=== PATIENT | female | born 1980 | race Hispanic/Latino ===

== ENCOUNTER 2022-04-30 02:44 | Emergency (ER) | payer OTHER, MEDICAID, SELFPAY ==
[2022-04-30] VITALS (12 sets, daily range): BP systolic 135–155; BP diastolic 67–92; PULSE 114–122; RESP 14–16; TEMP 36.9; O2SAT 95–100; BMI 27.4
--- NOTE | 2022-04-30 03:43 | DI.RAD.S_ITS ---
PROCEDURE: XR CHEST 1V INDICATIONS: short of breath, fever TECHNIQUE: One view of the chest was acquired. COMPARISON: [facility], CT, CT CHEST ABD PEL W CON, 04/30/2022, 5:01. [facility], CR, XR CHEST 1 VIEW, 07/31/2018, 19:52. FINDINGS: Surgical changes and devices: None. Lungs and pleura: Lungs are clear. No pleural effusions or pneumothorax. Mediastinum: Mediastinal contours appear normal. Heart size is normal. Bones and chest wall: No suspicious bony lesions. Overlying soft tissues appear unremarkable. IMPRESSION: No acute cardiopulmonary abnormality. This report is concordant with the overnight preliminary interpretation. Dictated by: Dain Ashby M.D. on 04/30/2022 at 7:59 Approved by: Dain Ashby M.D. on 04/30/2022 at 8:00
--- NOTE | 2022-04-30 03:44 | ED.AMS ---
HPI - Altered Mental Status General Chief Complaint: Abdominal Pain Stated Complaint: abd pain, sore throat, lethargic Time Seen by Provider: 04/30/22 03:02 History of Present Illness HPI narrative: 41-year-old female nonsmoker with history of diabetes presents with family and friends in the chief complaint of bordering on unresponsive, complaints of sore throat, abdominal pain and nausea for the past day or 2. She denies missing any doses of her insulin or any change in her regimen. She denies chest pain, shortness of breath or cough. She is been nauseated but denies any vomiting. She is had no change in her bowel habits such as constipation or diarrhea. She denies alcohol or street drugs. There is no report of trauma or injury Related Data Previous Rx's Medication Instructions Recorded hydrocodone 5 mg-acetaminophen 325 0 tab PO QHS PRN PRN #30 tabs 04/05/16 mg tablet insulin glargine 100 unit/mL 30 u SQ BID #1 vial 04/05/16 subcutaneous solution (Lantus U-100 Insulin) lovastatin 20 mg tablet 20 mg PO HS #30 tabs 04/05/16 [place] 0 dev BID ##1 09/08/16 Syringes 0 syr BID #100 ea 09/08/16 insulin aspart U-100 100 unit/mL 30 unit (0.3 mL) SQ BID #1 vial 09/08/16 subcutaneous solution (Novolog U-100 Insulin aspart) Glucose: Home Monitoring Kit kit ##1 03/29/17 [place] packet BID ##1 03/29/17 Syringes: 1cc Insulin Syringes syr ##100 03/29/17 with [place] insulin aspart U-100 100 unit/mL 30 u SQ BID ##1 03/29/17 subcutaneous solution (Novolog U-100 Insulin aspart) insulin glargine 100 unit/mL 30 unit (0.3 mL) SQ BID #1 vial 03/29/17 subcutaneous solution (Lantus U-100 Insulin) Allergies Allergy/AdvReac Type Severity Reaction Status Date / Time mushroom [MUSHROOM] Allergy Unknown Unverified 09/14/17 12:32 Review of Systems Review of Systems Narrative: GENERAL: See HPI HEENT: Denies sinus pain, ear pain, sore throat, difficulty swallowing, dizziness. RESPIRATORY: Denies dyspnea, cough, wheezing, hemoptysis, sputum. CARDIOVASCULAR: Denies chest pain, palpitations, orthopnea, edema, GASTROINTESTINAL: See HPI : See HPI MUSCULOSKELETAL: denies weakness, joint pain, or bony pain SKIN: Denies rash, skin lesions, or other NEUROLOGIC: Denies weakness, headache, numbness, change in speech, confusion, seizures, incoordination. PSYCHIATRIC: No concerning psychosocial issues. 12 point review of systems is negative except for those stated above Patient History Surgical History Status post delivery Status post delivery Family History Father Cancer Hypertension High cholesterol Diabetes mellitus Mother Diabetes mellitus Hypertension Hyperlipidemia Sister Age: 47 Diabetes mellitus High cholesterol Hypertension Exam Narrative Exam Narrative: GENERAL: [41] year old patient appears stated age. Well-developed patient, apparent distress, moaning, guarding her airway and controlling secretions, HEAD: Atraumatic. Normocephalic. EYES: Pupils equal round and reactive. Extraocular motions intact. No scleral icterus. No injection or drainage. ENT: Nose without bleeding, purulent drainage. Throat without erythema, tonsillar hypertrophy or exudate. Airway patent. NECK: Trachea midline. Non tender CARDIOVASCULAR: Regular rate and rhythm without murmurs, gallops, or rubs. RESPIRATORY: Clear to auscultation. Breath sounds equal bilaterally. No wheezes, rales, or rhonchi. GASTROINTESTINAL: Abdomen soft, non-tender, nondistended. EXTREMITIES: No edema or joint tenderness. BACK: Nontender without deformity or crepitance. No flank tenderness. NEURO: Cranial nerves 2-12 grossly intact. SKIN: No rash or erythema of visible areas Initial Vital Signs Initial Vital Signs: Vital Signs Temperature 98.5 F 04/30/22 03:42 Pulse Rate 120 H 04/30/22 03:42 Respiratory Rate 16 04/30/22 03:42 Blood Pressure 135/92 H 04/30/22 03:42 Pulse Oximetry 99 04/30/22 03:42 Oxygen Delivery Method 04/30/22 03:42 Course Orders Ordered: Discontinued Medications Lactated Ringer's (Lactated Ringers) 1,000 mls @ 1,000 mls/hr IV BOLUS ONE Stop: 04/30/22 04:42 Last Infusion: 04/30/22 06:31 Dose: 0 mls/hr Documented By: Admin: 04/30/22 03:54 Dose: 1,000 mls/hr Documented By: FRANCISCO Levofloxacin (Levaquin) 750 mg in 150 mls @ 100 mls/hr IV NOW ONE Stop: 04/30/22 06:21 Last Infusion: 04/30/22 07:37 Dose: 0 mls/hr Documented By: Admin: 04/30/22 06:02 Dose: 100 mls/hr Documented By: FRANCISCO Lactated Ringer's (Lactated Ringers) 1,000 mls @ 1,000 mls/hr IV BOLUS ONE Stop: 04/30/22 06:59 Last Infusion: 04/30/22 07:37 Dose: 0 mls/hr Documented By: Admin: 04/30/22 06:31 Dose: 1,000 mls/hr Documented By: FRANCISCO Ketorolac Tromethamine (Ketorolac 30 Mg/Ml Vial) 15 mg IV NOW ONE Stop: 04/30/22 06:01 Last Admin: 04/30/22 06:06 Dose: 15 mg Documented By: FRANCISCO Reevaluation(s) Reevaluation #1: Over the duration of the visit patient becomes gradually more alert and oriented, she is speaking clearly and walking a straight line. She admits to using methamphetamines before her arrival Vital Signs Vital signs: Vital Signs - 8 hr 04/30/22 03:42 04/30/22 06:34 Temperature 98.5 F Pulse Rate 120 H 118 H Respiratory Rate 16 16 Blood Pressure 135/92 H 142/89 H Pulse Oximetry 99 98 Oxygen Delivery Method Room Air MDM - Altered Mental Status Lab Data Result diagrams: 04/30/22 03:45 04/30/22 03:45 Labs: Lab Results 04/30/22 04/30/22 04/30/22 Range/Units 03:45 03:45 03:45 WBC 25.6 H (4.5-11.0) X10^3/uL RBC 4.92 (4.0-5.2) X10^6/uL Hgb 12.9 (12.0-16.0) g/dL Hct 39.2 (36-46) % MCV 79.8 L (80-100) fL MCH 26.1 (26-34) PG MCHC 32.8 (30-36) % RDW 13.7 (11.6-14.8) % Plt Count 372 (150-400) X10^3/uL Neut % (Auto) Not Reportable Lymph % (Auto) Not Reportable [place] % (Auto) Not Reportable Eos % (Auto) Not Reportable Baso % (Auto) Not Reportable Lymph # (Auto) Not Reportable [place] # (Auto) Not Reportable Baso # (Auto) Not Reportable Total Counted 100 Seg Neutrophils % 90.0 H (38-70) % Band Neutrophils % 2.0 L (3-7) % Lymphocytes % (Manual) 5.0 L (25-45) % Monocytes % (Manual) 3.0 (2-11) % Neutrophils # (Manual) 70464 H (5416-4184) /uL RBC Morphology Normal morphology Sodium 136 L (137-145) mmol/L Potassium 3.5 (3.4-5.1) mmol/L Chloride 100 (98-107) mmol/L Carbon Dioxide 24 (22-32) mmol/L BUN 6 L (7-17) mg/dL Creatinine 0.55 (0.52-1.04) mg/dL Estimated GFR > 60 (>60) mL/min BUN/Creatinine Ratio 10.9 (6-22) Glucose 416 H (70-100) mg/dL Lactate 1.3 (0.7-2.1) mmol/L Calcium 8.6 (8.4-10.2) mg/dL Magnesium 1.7 (1.6-2.3) mg/dL Total Bilirubin 0.4 (0.2-1.3) mg/dL AST 48 H (14-36) IU/L ALT 57 H (<35) IU/L Alkaline Phosphatase 238 H (38-126) U/L Total Creatine Kinase 91 (30-135) U/L CK-MB (CK-2) TNP CK-MB (CK-2) Rel Index TNP Troponin I < 0.012 (0.01-0.034) ng/mL NT-Pro-B Natriuret Pep 50 (<125) pg/mL Total Protein 8.1 (6.3-8.2) g/dL Albumin 3.9 (3.5-5.0) g/dL Globulin 4.2 H (1.7-4.1) g/dL Albumin/Globulin Ratio 0.9 L (1.0-2.8) Lipase 18 L (23-300) U/L Salicylates (<20) mg/dL Acetaminophen (10-30) ug/mL Ethyl Alcohol ( - 10) mg/dL SARS-CoV-2 (PCR) (Negative) Influenza A (RT-PCR) (NEGATIVE) Influenza B (RT-PCR) (NEGATIVE) RSV (PCR) (Negative) 04/30/22 04/30/22 Range/Units 03:45 03:57 WBC (4.5-11.0) X10^3/uL RBC (4.0-5.2) X10^6/uL Hgb (12.0-16.0) g/dL Hct (36-46) % MCV (80-100) fL MCH (26-34) PG MCHC (30-36) % RDW (11.6-14.8) % Plt Count (150-400) X10^3/uL Neut % (Auto) Lymph % (Auto) [place] % (Auto) Eos % (Auto) Baso % (Auto) Lymph # (Auto) [place] # (Auto) Baso # (Auto) Total Counted Seg Neutrophils % (38-70) % Band Neutrophils % (3-7) % Lymphocytes % (Manual) (25-45) % Monocytes % (Manual) (2-11) % Neutrophils # (Manual) (5253-9689) /uL RBC Morphology Sodium (137-145) mmol/L Potassium (3.4-5.1) mmol/L Chloride (98-107) mmol/L Carbon Dioxide (22-32) mmol/L BUN (7-17) mg/dL Creatinine (0.52-1.04) mg/dL Estimated GFR (>60) mL/min BUN/Creatinine Ratio (6-22) Glucose (70-100) mg/dL Lactate (0.7-2.1) mmol/L Calcium (8.4-10.2) mg/dL Magnesium (1.6-2.3) mg/dL Total Bilirubin (0.2-1.3) mg/dL AST (14-36) IU/L ALT (<35) IU/L Alkaline Phosphatase (38-126) U/L Total Creatine Kinase (30-135) U/L CK-MB (CK-2) CK-MB (CK-2) Rel Index Troponin I (0.01-0.034) ng/mL NT-Pro-B Natriuret Pep (<125) pg/mL Total Protein (6.3-8.2) g/dL Albumin (3.5-5.0) g/dL Globulin (1.7-4.1) g/dL Albumin/Globulin Ratio (1.0-2.8) Lipase (23-300) U/L Salicylates 2.2 (<20) mg/dL Acetaminophen < 10 (10-30) ug/mL Ethyl Alcohol < 10 ( - 10) mg/dL SARS-CoV-2 (PCR) Negative (Negative) Influenza A (RT-PCR) Flu a negative (NEGATIVE) Influenza B (RT-PCR) Flu b negative (NEGATIVE) RSV (PCR) Negative (Negative) Point of Care Testing Glucose POC [address] scan - chest: Radiologist's Impression: Close Chest/Abdomen/Pelvis CT (Signed) Call,[facility] - 04/30/22 Chest X-Ray (Signed) Call,[facility] 04/30/22 Launch?[place] [address] CT Scan Report Signed Patient: Nancy Rea MR#: [id number] : 1980 Acct:[id number] Age/Sex: 41 / F Date of Service: 04/30/22 Loc: ED Accession Number: [id number] ?? Procedure: CT chest abd pel w con Ordering Provider: Jose Calderon D.O. PROCEDURE:? CT CHEST ABD PEL W CON ? INDICATIONS:? chest/abdomen pain, septic, WBC 25 ? TECHNIQUE:? After the administration of intravenous contrast, axial sections acquired from the supraclavicular neck to the pubic symphysis.? Coronal and sagittal reformats were performed.? For radiation dose reduction, the following was used:? automated exposure control, adjustment of mA and/or kV according to patient size.? ? COMPARISON: ? [facility], CT, CT CHEST W CON, 01/09/2016, 10:28. ? FINDINGS:? Image quality:? Good.? Motion artifact.? ? CHEST: Lower Neck: No enlarged lymph nodes.? Thyroid: Within normal limits. Axillae: No enlarged lymph nodes. Chest Wall:? Within normal limits.? ? Lungs and Airways: No consolidation or suspicious nodules.? Minimal dependent ground-glass opacity most consistent with atelectasis.? Motion artifact. Pleura: No pneumothorax or pleural effusions.? ? Heart: Heart size is normal.? No pericardial effusion. Thoracic Vessels: The aorta and pulmonary arteries demonstrate normal size.? Mediastinum and Veronique: No enlarged lymph nodes.? Esophagus: No wall thickening. No hiatal hernia. ? ? ABDOMEN: Liver:? No focal lesion. Gallbladder:? Distended. Biliary ducts:? No dilatation seen.? ? Pancreas:? Within normal limits.? Somewhat atrophic.? ? Spleen:? No splenomegaly. Adrenal Glands:? No nodule.? ? Kidneys and Ureters:? No hydronephrosis.? Symmetric enhancement. ? Stomach and Bowel:? Stomach, small bowel loops, and colon are unremarkable.? The appendix is not dilated. Peritoneum:? No abnormal intraperitoneal fluid.? No free air.? ? Ventral Wall: ? No hernia.? Abdominal Nodes:? No retroperitoneal or mesenteric adenopathy by size criteria.? Vessels:? Aorta and inferior vena cava are normal in size.? Mild plaque.? ? PELVIS: Pelvic Organs:? Endometrium is prominent.? Small right ovarian cyst or follicle.? Bladder:? Distended.? No stones. Pelvic Nodes: No enlarged lymph nodes.? Miscellaneous: No inguinal hernias are seen. ? ? ? Bones:? No suspicious lesion. ? IMPRESSION:? 1.? Minimal atelectasis. ? 2.? Distended gallbladder. ? 3.? Distended urinary bladder. ? 4. No free fluid. ? ? This report is concordant with the overnight preliminary interpretation.? Dictated by: Dain Ashby M.D. on 04/30/2022 at 7:47 ? ? Approved by: Dain Ashby M.D. on 04/30/2022 at 7:59 ? MDM Narrative Medical decision making narrative: Patient initially presented altered with an unclear history and physical exam over the course of the visit she became awake, alert and ambulatory with a steady gait. Her diagnostics including imaging and labs are very reassuring with the exception of a elevated white blood cell count. This is in the absence of any fever or suspected infection. She did admit to using methamphetamine just before her arrival but has not shared this information with her family. She refused a urine sample. In the end she was awake, alert and oriented and walking a straight line and requesting discharge stating she felt much better. She understood that we would have preferred to obtain urine and continue to observe and that the consequences of leaving prior to this could be permanent disability and even . Despite this discussion and her repeatedly stating she understands and demands to leave she chooses to leave. Her questions have been answered to her apparent satisfaction. She understands that she may return at any point without fear red percussion. Discharge Plan Departure Patient Disposition: Home Clinical Impression: Acute alteration in mental status Activity Restrictions/Additional Instructions: *You have been diagnosed with [altered mental status with very reassuring evaluation and improvement of symptoms] *What to do: *Please continue to take your regular medications as directed. *Please follow up with your primary care provider in 2-3 days, call for an appointment. Let them know you were seen in the Emergency Department and that we ask that you be seen in follow up. We will electronically transmit a record of today's note if your PCP is in our system *If you do not have a primary care provider please contact the [facility] Resource line at [phone]. They will ask some questions about your medical history and help get you set up with a doctor in the community. *Return to Emergency Department if you should have any new, worsening or concerning symptoms, such as [fever greater than 101 F, shaking chills, worsening pain, persistent vomiting or other bothersome symptoms] Prescriptions: No Action insulin glargine [Lantus U-100 Insulin] 100 UNIT/1 ML solution 30 u SQ BID Qty: 1 5RF lovastatin 20 MG tablet 20 mg PO HS Qty: 30 5RF hydrocodone-acetaminophen 5 MG/325 MG tablet 0 tab PO QHS PRN PRNQty: 30 0RF [place] 0 dev BID Qty: 1 0RF Syringes 0 syr BID Qty: 100 0RF insulin aspart U-100 [Novolog U-100 Insulin aspart] 100 UNIT/1 ML solution 30 unit SQ BID Qty: 1 0RF insulin glargine [Lantus U-100 Insulin] 100 UNIT/1 ML solution 30 unit SQ BID Qty: 1 0RF insulin aspart U-100 [Novolog U-100 Insulin aspart] 100 UNIT/1 ML solution 30 u SQ BID Qty: 1 0RF Glucose: Home Monitoring Kit Qty: 1 0RF [place] BID Qty: 1 0RF Syringes: 1cc Insulin Syringes with [place] Qty: 100 0RF Visit Report Forms: Patient Portal/API
[2022-04-30 03:53] LABS: Hematocrit 39.2 % (36-46); Hemoglobin 12.9 g/dL (12.0-16.0); Mean Corpuscular HGB Conc 32.8 % (30-36); Mean Corpuscular Hemoglobin 26.1 PG (26-34); Mean Corpuscular Volume 79.8 fL (80-100); Platelet Count 372 X10^3/uL (150-400); Red Blood Cell Count 4.92 X10^6/uL (4.0-5.2); Red Cell Distribution Width 13.7 % (11.6-14.8); White Blood Cell Count 25.6 X10^3/uL (4.5-11.0)
[2022-04-30] MEDS: LACTATED RINGERS 1,000 ML 1000 ML IV ×2 (03:54→06:31)
[2022-04-30 03:58] LABS: Add Manual Diff / Slide Review YES
[2022-04-30 04:03] LABS: Alanine Aminotransferase 57 IU/L (<35); Albumin 3.9 g/dL (3.5-5.0); Albumin Globulin Ratio 0.9 (1.0-2.8); Alkaline Phosphatase 238 U/L (38-126); Aspartate Aminotransferase 48 IU/L (14-36); BUN Creatinine Ratio 10.9 (6-22); Bilirubin Total 0.4 mg/dL (0.2-1.3); Blood Urea Nitrogen 6 mg/dL (7-17); Calcium 8.6 mg/dL (8.4-10.2); Carbon Dioxide 24 mmol/L (22-32); Chloride 100 mmol/L (98-107); Creatine Kinase 91 U/L (30-135); Estimated Glomerular Filt Rate > 60 mL/min (>60); Globulin 4.2 g/dL (1.7-4.1); Glucose 416 mg/dL (70-100); HEMOLYSIS < 15 (0-50); Lipase 18 U/L (23-300); Magnesium 1.7 mg/dL (1.6-2.3); Potassium 3.5 mmol/L (3.4-5.1); Sodium 136 mmol/L (137-145); Total Protein 8.1 g/dL (6.3-8.2)
[2022-04-30 04:04] LABS: Acetaminophen < 10 ug/mL (10-30); Ethanol (ETOH) < 10 mg/dL; Salicylate 2.2 mg/dL (<20)
[2022-04-30 04:05] LABS: Lactate (Lactic Acid) 1.3 mmol/L (0.7-2.1)
[2022-04-30 04:09] LABS: Neutrophils Absolute Manual 23552 /uL (3000-5900); Total Cells Counted 100
[2022-04-30 04:10] LABS: RBC Morphology Normal Morphology
[2022-04-30 04:17] LABS: NT-proBNP (BNP-Adult 18+) 50 pg/mL (<125); Troponin I < 0.012 ng/mL (0.01-0.034)
[2022-04-30 04:38] LABS: Influenza A - CEPHEID Flu A NEGATIVE (NEGATIVE); Influenza B - CEPHEID Flu B NEGATIVE (NEGATIVE); Respiratory Syncytial Virus Negative (Negative)
[2022-04-30 04:43] LABS: COVID-19 CEPHEID 4-PLEX PCR Negative (Negative)
--- NOTE | 2022-04-30 04:51 | DI.CT.S_ITS ---
PROCEDURE: CT CHEST ABD PEL W CON INDICATIONS: chest/abdomen pain, septic, WBC 25 TECHNIQUE: After the administration of intravenous contrast, axial sections acquired from the supraclavicular neck to the pubic symphysis. Coronal and sagittal reformats were performed. For radiation dose reduction, the following was used: automated exposure control, adjustment of mA and/or kV according to patient size. COMPARISON: [facility], CT, CT CHEST W CON, 01/09/2016, 10:28. FINDINGS: Image quality: Good. Motion artifact. CHEST: Lower Neck: No enlarged lymph nodes. Thyroid: Within normal limits. Axillae: No enlarged lymph nodes. Chest Wall: Within normal limits. Lungs and Airways: No consolidation or suspicious nodules. Minimal dependent ground-glass opacity most consistent with atelectasis. Motion artifact. Pleura: No pneumothorax or pleural effusions. Heart: Heart size is normal. No pericardial effusion. Thoracic Vessels: The aorta and pulmonary arteries demonstrate normal size. Mediastinum and Veronique: No enlarged lymph nodes. Esophagus: No wall thickening. No hiatal hernia. ABDOMEN: Liver: No focal lesion. Gallbladder: Distended. Biliary ducts: No dilatation seen. Pancreas: Within normal limits. Somewhat atrophic. Spleen: No splenomegaly. Adrenal Glands: No nodule. Kidneys and Ureters: No hydronephrosis. Symmetric enhancement. Stomach and Bowel: Stomach, small bowel loops, and colon are unremarkable. The appendix is not dilated. Peritoneum: No abnormal intraperitoneal fluid. No free air. Ventral Wall: No hernia. Abdominal Nodes: No retroperitoneal or mesenteric adenopathy by size criteria. Vessels: Aorta and inferior vena cava are normal in size. Mild plaque. PELVIS: Pelvic Organs: Endometrium is prominent. Small right ovarian cyst or follicle. Bladder: Distended. No stones. Pelvic Nodes: No enlarged lymph nodes. Miscellaneous: No inguinal hernias are seen. Bones: No suspicious lesion. IMPRESSION: 1. Minimal atelectasis. 2. Distended gallbladder. 3. Distended urinary bladder. 4. No free fluid. This report is concordant with the overnight preliminary interpretation. Dictated by: Dain Ashby M.D. on 04/30/2022 at 7:47 Approved by: Dain Ashby M.D. on 04/30/2022 at 7:59
--- NOTE | 2022-04-30 05:16 | PC.NURSE ---
BACK TENDER note: As I was coming in from taking patient to CT, I noticed pt's family member had her cellphone out and pointed towards me, as I was putting patient's blood pressure cuff on. I asked what she was doing. I have to show my sister what is happening. Right? I tried to say that we were a no recording facility. But patient began to ask for something. I told Shauna ROMANO about the situation. Shauna talked to patient's family.
--- NOTE | 2022-04-30 05:24 | PC.NURSE ---
Pt has become more alert and moves entire body in bed while continually yelling out for water. When MD goes into room to assess pt, pt refuses to answer question and demands water.
--- NOTE | 2022-04-30 05:51 | PC.NURSE ---
Patient suddenly yelling give me water, crawling out of bed and not following directions. Speech slurred, patient unsteady gait. Repeated attempts to direct patient back into bed, however patient declined to follow directions, yelling profane language and declining to answer questions regarding her needs. Patient unable to verbalize her needs at this time, stating I need water. Patient unsteady gait towards door, combative and swinging arms. Dr. Calderon at the bedside. Daughter at the bedside attempts multiple times to motivate mother back to [facility] but patient persists through door. Patient does not allow IV removal. Police notified.
--- NOTE | 2022-04-30 05:58 | PC.NURSE ---
Patient ambulating with assistance with Dr. Calderon back into ED room and onto [address].
[2022-04-30] MEDS: levoFLOXacin 750 MG/150 ML PIGGYBACK 100 MG IV (06:02)
[2022-04-30] MEDS: KETOROLAC 30 MG/ML VIAL 15 MG IV (06:06)
== END 2022-04-30 08:14 | disposition home or self-care (01) ==
PROVIDERS: Emergency Provider Emergency Medicine; Family Provider Family Medicine
DX: R41.82 Altered mental status, unspecified (principal); R07.9 Chest pain, unspecified; J02.9 Acute pharyngitis, unspecified
CPT/HCPCS: 0241U; 36415; 71045; 71260; 74177; 80053; 80320; 80329; 82550; 82962; 83605; 83690; 83735; 83880; 84484; 85007; 85025; 87040; 96365; 96366; 96375; 99284; G0480; J1885; J1956; Q9967

== ENCOUNTER 2024-01-01 23:40 | Emergency (ER) | payer OTHER, MEDICAID, SELFPAY ==
[2024-01-01 23:50] VITALS: BP 121/78; PULSE 98; RESP 16; TEMP 36.3; O2SAT 99; BMI 28.3
[2024-01-02] VITALS (10 sets, daily range): BP systolic 120–153; BP diastolic 71–85; PULSE 85–113; RESP 19; TEMP 36.4; O2SAT 91–99
--- NOTE | 2024-01-02 00:05 | DI.CT.S_ITS ---
PROCEDURE: CT ABDOMEN PELVIS WO CON INDICATIONS: RLQ ABD/FLANK PAIN TECHNIQUE: Axial sections were acquired from the lung bases to the pubic symphysis. Coronal and sagittal reformats were performed. For radiation dose reduction, the following was used: automated exposure control, adjustment of mA and/or kV according to patient size. COMPARISON: None. FINDINGS: Image quality: Diagnostic. Lower Chest: No significant findings. URINARY: Right Kidney: No stones or hydronephrosis. Right Ureter: No hydroureter. Left Kidney: No stones or hydronephrosis. Left Ureter: No hydroureter. Bladder: Bladder is decompressed and contains air. No bladder calculi. ABDOMEN: Liver: No contour-deforming solid mass. Gallbladder: No radiopaque gallstones or wall thickening. Biliary ducts: No biliary dilation. Pancreas: No ductal dilation. Spleen: Size is within normal limits. Adrenal Glands: No adrenal nodules. Stomach and Bowel: Normal colonic caliber, without significant wall thickening. Normal appendix. Peritoneum: No abnormal intraperitoneal fluid. No free air. Ventral Wall: No hernia. Abdominal Nodes: No enlarged retroperitoneal or mesenteric lymph nodes. Vessels: Aorta and inferior vena cava are normal in size. PELVIS: Pelvic Organs: Retroverted uterus. Right ovary appears slightly larger than the left, which is nonspecific. Pelvic Nodes: Unremarkable. Miscellaneous: No inguinal hernias are seen. Bones: Unremarkable. IMPRESSION: 1. Bladder is decompressed and contains air. Correlate for recent instrumentation versus infection with a gas-forming organism. 2. No renal or ureteral calculus. Normal appendix. 3. Right ovary appears slightly larger than the left. If there is clinical suspicion for ovarian torsion, consider pelvic ultrasound for further evaluation. Approved by: Rick Gotti M.D. on 01/02/2024 at 0:38
--- NOTE | 2024-01-02 00:20 | ED_ITS ---
HPI - Abdominal Pain General Chief Complaint: Abdominal Pain Stated Complaint: ABD Pain rt lower Time Seen by Provider: 01/02/24 00:01 Source: patient Mode of arrival: Ambulatory History of Present Illness HPI narrative: 43-year-old female with history of diabetes presents for cramping right-sided abdominal pain, foul-smelling and frothy urine. Symptoms have been going on for the last 2-3 days, persistent since onset. This has never happened before Related Data Home Medications Medication Instructions Recorded Confirmed duloxetine 20 mg capsule,delayed 40 mg PO ONCE PM 01/04/24 01/04/24 release empagliflozin 25 mg tablet 25 mg PO QAM 01/04/24 01/04/24 (Jardiance) famotidine 20 mg tablet 20 mg PO BID PRN STOMACH ACID 01/04/24 01/04/24 gabapentin 300 mg capsule 1 mg PO TID 01/04/24 01/04/24 insulin aspart U-100 100 unit/mL See Rx Instructions .Route .COMPLEX 01/04/24 01/04/24 subcutaneous solution (Novolog U-100 Insulin aspart) metformin 500 mg tablet,extended 1,000 mg PO BID 01/04/24 01/04/24 release 24 hr rosuvastatin 20 mg tablet 20 mg PO QPM 01/04/24 01/04/24 losartan 25 mg tablet 25 mg PO DAILY 01/05/24 Previous Rx's Medication Instructions Recorded lovastatin 20 mg tablet 20 mg PO HS #30 tabs 04/05/16 insulin glargine 100 unit/mL 30 unit (0.3 mL) SQ BID #1 vial 03/29/17 subcutaneous solution (Lantus U-100 Insulin) cefpodoxime 200 mg tablet 200 mg PO Q12H #20 tabs 01/02/24 Allergies Allergy/AdvReac Type Severity Reaction Status Date / Time mushroom [MUSHROOM] Allergy Unknown Verified 01/02/24 00:44 anti coagulation Allergy Unknown Uncoded 01/04/24 14:04 Patient History Surgical History Status post delivery Status post delivery Family History Father Cancer Hypertension High cholesterol Diabetes mellitus Mother Diabetes mellitus Hypertension Hyperlipidemia Sister Age: 48 Diabetes mellitus High cholesterol Hypertension Social History household members: significant other Smoking Status: Current every day smoker alcohol intake: current Smoking Status: Current every day smoker tobacco type: cigarettes and vaping alcohol intake frequency: holidays/special occasions only Substance Use Type: marijuana Exam Initial Vital Signs Initial Vital Signs: Vital Signs Temperature 97.4 F L 01/01/24 23:50 Pulse Rate 98 H 01/01/24 23:50 Respiratory Rate 16 01/01/24 23:50 Blood Pressure 121/78 01/01/24 23:50 Pulse Oximetry 99 01/01/24 23:50 Oxygen Delivery Method Room Air 01/01/24 23:50 Const: Awake, alert, anxious, nontoxic appearing Cardiac: regular rate, regular rhythm RESP: unlabored, clear bilaterally, no wheezing GI: Soft, generalized tenderness to deep palpation, particularly in the lower quadrant, no rebound or guarding Skin: Warm, Dry, intact, no rashes Neuro: AO x3, CN II-XII grossly intact, moves all extremities Course Orders Ordered: Discontinued Medications Sodium Chloride (Normal Saline 0.9%) 1,000 mls @ 1,000 mls/hr IV BOLUS ONE Stop: 01/02/24 01:04 Last Infusion: 01/02/24 02:46 Dose: Infused Documented By: Admin: 01/02/24 00:45 Dose: 1,000 mls/hr Documented By: PALMIRA Ketorolac Tromethamine (Ketorolac 30 Mg/Ml Vial) 15 mg IV NOW ONE Stop: 01/02/24 00:06 Last Admin: 01/02/24 00:46 Dose: 15 mg Documented By: PALMIRA Vital Signs Vital signs: Vital Signs - 8 hr 01/01/24 23:50 01/02/24 00:49 01/02/24 00:50 Temperature 97.4 F L Pulse Rate 98 H 109 H Respiratory Rate 16 Blood Pressure 121/78 128/83 Pulse Oximetry 99 99 Oxygen Delivery Method Room Air 01/02/24 00:50 01/02/24 01:00 01/02/24 01:00 Temperature Pulse Rate 105 H 105 H Respiratory Rate Blood Pressure 153/85 H Pulse Oximetry 98 95 Oxygen Delivery Method 01/02/24 01:26 01/02/24 01:30 01/02/24 01:36 Temperature Pulse Rate 105 H 113 H Respiratory Rate Blood Pressure 132/71 Pulse Oximetry 97 98 Oxygen Delivery Method Room Air 01/02/24 02:00 01/02/24 02:00 01/02/24 02:30 Temperature Pulse Rate 109 H Respiratory Rate Blood Pressure 137/81 127/74 Pulse Oximetry 98 Oxygen Delivery Method 01/02/24 02:30 01/02/24 03:00 01/02/24 03:00 Temperature Pulse Rate 105 H 106 H Respiratory Rate Blood Pressure 132/79 Pulse Oximetry 91 94 Oxygen Delivery Method MDM - Abdominal Pain Differential Diagnosis Differential diagnosis: Likely abdominal pain, acute appendicitis and calculus of kidney Lab Data 01/02/24 00:35 01/02/24 00:35 Labs: Lab Results 01/02/24 01/02/24 Range/Units 00:01 00:35 WBC 7.8 (4.5-11.0) X10^3/uL RBC 3.29 L (4.0-5.2) X10^6/uL Hgb 9.1 L (12.0-16.0) g/dL Hct 26.8 L (36-46) % MCV 81.5 (80-100) fL MCH 27.6 (26-34) PG MCHC 33.8 (30-36) % RDW 14.2 (11.6-14.8) % Plt Count 404 H (150-400) X10^3/uL Neut % (Auto) 64.1 (50-75) % Lymph % (Auto) 25.6 (25-40) % Nicholas % (Auto) 7.3 (3-14) % Eos % (Auto) 2.2 (2-4) % Baso % (Auto) 0.8 (0-2) % Neut # (Auto) 5000 (3761-1242) /uL Lymph # (Auto) 2000 (0112-7076) /uL Nicholas # (Auto) 600 (0-900) /uL Eos # (Auto) 200 (0-450) /uL Baso # (Auto) 100 (0-100) /uL Sodium 138 (137-145) mmol/L Potassium 3.6 (3.4-5.1) mmol/L Chloride 107 (98-107) mmol/L Carbon Dioxide 24 (22-32) mmol/L BUN 18 H (7-17) mg/dL Creatinine 0.87 (0.52-1.04) mg/dL Estimated GFR > 60 (>60) mL/min BUN/Creatinine Ratio 20.7 (6-22) Glucose 237 H (70-100) mg/dL Calcium 8.0 L (8.4-10.2) mg/dL Total Bilirubin 0.2 (0.2-1.3) mg/dL AST 21 (14-36) IU/L ALT 18 (<35) IU/L Alkaline Phosphatase 78 (38-126) U/L Total Protein 6.8 (6.3-8.2) g/dL Albumin 3.5 (3.5-5.0) g/dL Globulin 3.3 (1.7-4.1) g/dL Albumin/Globulin Ratio 1.1 (1.0-2.8) Urine Color Yellow Urine Appearance Cloudy Urine pH 6.0 (4.5-8.0) Ur Specific [place] >=1.030 H (1.000-1.035) Urine Protein 3+ H (Negative) Urine Glucose (UA) 3+ H (Negative) g/dL Urine Ketones Negative (NEGATIVE) Urine Occult Blood 2+ H (Negative) Urine Nitrate Negative (Negative) Urine Bilirubin Negative (NEGATIVE) Urine Urobilinogen 0.2 (0.2) E.U./dL Ur Leukocyte Esterase Negative (NEGATIVE) Urine RBC None seen (0-5/HPF) Urine WBC 1-5/hpf (0-5/HPF) Ur Squamous Epith Cells 0-1 /hpf (0-5/HPF) Urine Bacteria Many (>30) H (None) Ur Culture Indicated? Specimen cultured Vol Urine Centrifuged 10ml (spun) Point of care testing: Point of Care Testing Test Results Negative Urine Dip Bedside Urine Glucose 1000 mg/dl Bedside Urine Bilirubin - Negative Bedside Urine Ketone - Negative Urine Specific [place] 1.030 Bedside Urine Occult Blood +++ Bedside Urine pH 6.0 Bedside Urine Protein +++ 300 Bedside Urine Urobilinogen - Negative Bedside Urine Nitrite - Negative Bedside Urine Leukocytes - Negative Esterase Imaging Data CT scan - abdomen/pelvis: Radiologist's Impression: PROCEDURE: CT ABDOMEN PELVIS WO CON INDICATIONS: RLQ ABD/FLANK PAIN TECHNIQUE: Axial sections were acquired from the lung bases to the pubic symphysis. Coronal and sagittal reformats were performed. For radiation dose reduction, the following was used: automated exposure control, adjustment of mA and/or kV according to patient size. COMPARISON: None. FINDINGS: Image quality: Diagnostic. Lower Chest: No significant findings. URINARY: Right Kidney: No stones or hydronephrosis. Right Ureter: No hydroureter. Left Kidney: No stones or hydronephrosis. Left Ureter: No hydroureter. Bladder: Bladder is decompressed and contains air. No bladder calculi. ABDOMEN: Liver: No contour-deforming solid mass. Gallbladder: No radiopaque gallstones or wall thickening. Biliary ducts: No biliary dilation. Pancreas: No ductal dilation. Spleen: Size is within normal limits. Adrenal Glands: No adrenal nodules. Stomach and Bowel: Normal colonic caliber, without significant wall thickening. Normal appendix. Peritoneum: No abnormal intraperitoneal fluid. No free air. Ventral Wall: No hernia. Abdominal Nodes: No enlarged retroperitoneal or mesenteric lymph nodes. Vessels: Aorta and inferior vena cava are normal in size. PELVIS: Pelvic Organs: Retroverted uterus. Right ovary appears slightly larger than the left, which is nonspecific. Pelvic Nodes: Unremarkable. Miscellaneous: No inguinal hernias are seen. Bones: Unremarkable. IMPRESSION: 1. Bladder is decompressed and contains air. Correlate for recent instrumentation versus infection with a gas-forming organism. 2. No renal or ureteral calculus. Normal appendix. 3. Right ovary appears slightly larger than the left. If there is clinical suspicion for ovarian torsion, consider pelvic ultrasound for further evaluation. Approved by: Rick Gotti M.D. on 01/02/2024 at 0:38 MDM Narrative Medical decision making narrative: Nontoxic appearing patient with several days of discomfort and frothing urine. Exam overall reassuring, no peritoneal signs. Laboratory work and CT imaging to be obtained to evaluate for possible stone. Laboratory work shows WBC count 7.8, hemoglobin 9.1, platelets 404. Uncertain significance of hemoglobin as last values on record are from 2021. Sodium 138, potassium 3.6, creatinine 0.87, glucose 237. CT of the abdomen and pelvis shows air in the bladder, no stone. Noted that right ovary appears slightly larger than the left, however based on patient's description of symptoms as well as benign abdominal exam I have no suspicion for torsion at this time. There was no instrumentation into the bladder and so gas would be unusual. Point of care urinalysis did not reveal any nitrites or leukocyte esterase, but microscopic urinalysis showed many bacteria. Patient counseled on all lab and imaging findings. Antibiotics sent to pharmacy of choice. Patient counseled to maintain closer control of her glucose to help prevent further urinary tract infections. Discharge Plan Departure Patient Disposition: Home Clinical Impression: UTI (urinary tract infection) Instructions: DI for Urinary Tract Infection (UTI) Activity Restrictions/Additional Instructions: Your laboratory work showed a slightly high glucose, but otherwise normal. Your urinalysis has a lot of bacteria and glucose in it. Your CT showed a small amount of air in your bladder, likely caused by the bacteria present. It is extremely important that you keep your glucose under close control as this while help prevent further infections. Follow up with your primary care doctor. [facility] [place]. Prescriptions: New cefpodoxime 200 mg tablet 200 mg PO Q12H Qty: 20 0RF Patient Comments: NOT STARTED PER PATIENT Rx Instructions: must administer with a meal/food No Action lovastatin 20 MG tablet 20 mg PO HS Qty: 30 5RF insulin glargine [Lantus U-100 Insulin] 100 UNIT/1 ML solution 30 unit SQ BID Qty: 1 0RF famotidine 20 mg tablet 20 mg PO BID PRN (Reason: STOMACH ACID) gabapentin 300 mg capsule 1 mg PO TID metformin 500 mg tablet extended release 24 hr 1,000 mg PO BID rosuvastatin 20 mg tablet 20 mg PO QPM duloxetine 20 mg capsule,delayed release(DR/EC) 40 mg PO ONCE PM Jardiance 25 mg tablet 25 mg PO QAM insulin aspart U-100 [Novolog U-100 Insulin aspart] 100 UNIT/1 ML solution See Rx Instructions .ROUTE .COMPLEX Rx Instructions: SS [employer]OVERAGE losartan 25 mg tablet 25 mg PO DAILY Stand Alone Forms: Patient Portal/API
[2024-01-02] MEDS: SODIUM CHLORIDE 0.9% 1,000 ML 1000 ML IV (00:45)
[2024-01-02] MEDS: KETOROLAC 30 MG/ML VIAL 15 MG IV (00:46)
[2024-01-02 00:55] LABS: Add Manual Diff / Slide Review NO; Basophils Absolute Auto 100 /uL (0-100); Basophils Percent Auto 0.8 % (0-2); Eosinophils Absolute Auto 200 /uL (0-450); Eosinophils Percent Auto 2.2 % (2-4); Hematocrit 26.8 % (36-46); Hemoglobin 9.1 g/dL (12.0-16.0); Lymphocytes Absolute Auto 2000 /uL (1100-4500); Lymphocytes Percent Auto 25.6 % (25-40); Mean Corpuscular HGB Conc 33.8 % (30-36); Mean Corpuscular Hemoglobin 27.6 PG (26-34); Mean Corpuscular Volume 81.5 fL (80-100); Monocytes Absolute Auto 600 /uL (0-900); Monocytes Percent Auto 7.3 % (3-14); Neutrophils Absolute Auto 5000 /uL (1500-7000); Neutrophils Percent Auto 64.1 % (50-75); Platelet Count 404 X10^3/uL (150-400); Red Blood Cell Count 3.29 X10^6/uL (4.0-5.2); Red Cell Distribution Width 14.2 % (11.6-14.8); White Blood Cell Count 7.8 X10^3/uL (4.5-11.0)
[2024-01-02 01:13] LABS: Alanine Aminotransferase 18 IU/L (<35); Albumin 3.5 g/dL (3.5-5.0); Albumin Globulin Ratio 1.1 (1.0-2.8); Alkaline Phosphatase 78 U/L (38-126); Aspartate Aminotransferase 21 IU/L (14-36); BUN Creatinine Ratio 20.7 (6-22); Bilirubin Total 0.2 mg/dL (0.2-1.3); Blood Urea Nitrogen 18 mg/dL (7-17); Carbon Dioxide 24 mmol/L (22-32); Chloride 107 mmol/L (98-107); Estimated Glomerular Filt Rate > 60 mL/min (>60); Globulin 3.3 g/dL (1.7-4.1); Glucose 237 mg/dL (70-100); HEMOLYSIS < 15 (0-50); Potassium 3.6 mmol/L (3.4-5.1); Sodium 138 mmol/L (137-145); Total Protein 6.8 g/dL (6.3-8.2)
[2024-01-02 03:33] LABS: Appearance Urine UA CLOUDY; Bilirubin Urine UA NEGATIVE (NEGATIVE); Color Urine UA YELLOW; Glucose Urine UA 3+ g/dL (Negative); Ketones Urine UA NEGATIVE (NEGATIVE); Leukocyte Esterase Urine UA NEGATIVE (NEGATIVE); Nitrite Urine UA NEGATIVE (Negative); Occult Blood Urine UA 2+ (Negative); Protein Urine UA 3+ (Negative); Specific Gravity Urine UA >=1.030 (1.000-1.035); Urobilinogen Urine UA 0.2 E.U./dL (0.2)
[2024-01-02 03:40] LABS: Bacteria Urine Many (>30); Culture Indicated Urine Specimen Cultured; RBC Urine None Seen (0-5/HPF); Squamous Epithelial Cell Urine 0-1 /HPF (0-5/HPF); Urine Volume 10mL (spun); WBC Urine 1-5/HPF (0-5/HPF)
== END 2024-01-02 04:20 | disposition home or self-care (01) ==
PROVIDERS: Emergency Provider Emergency Medicine; Family Provider Family Medicine
DX: N39.0 Urinary tract infection, site not specified (principal); R10.31 Right lower quadrant pain
CPT/HCPCS: 36415; 74176; 80053; 81001; 81003; 81025; 85025; 87077; 87086; 87186; 87210; 96361; 96374; 99284; J1885

== ENCOUNTER 2024-01-04 10:06 | Inpatient (IN) | payer OTHER, MEDICAID, SELFPAY ==
[2024-01-04] VITALS (18 sets, daily range): BP systolic 115–136; BP diastolic 72–88; PULSE 66–119; RESP 15–24; TEMP 36.5–37.1; O2SAT 92–96; BMI 28.3; BMI 29.6
--- NOTE | 2024-01-04 10:20 | DI.RAD.S_ITS ---
PROCEDURE: XR CHEST 1V INDICATIONS: chest pain TECHNIQUE: One view of the chest was acquired. COMPARISON: [facility], CR, XR CHEST 1V, 04/30/2022, 3:48. FINDINGS: Surgical changes and devices: None. Lungs and pleura: Severe bilateral basilar predominant reticulonodular and ground-glass density. No pleural effusions or pneumothorax. Mediastinum: Mediastinal contours appear normal. Heart size is normal. Bones and chest wall: No suspicious bony lesions. Overlying soft tissues appear unremarkable. IMPRESSION: Bilateral edema versus pneumonia. Dictated by: Cb Valentine M.D. on 01/04/2024 at 11:09 Approved by: Cb Valentine M.D. on 01/04/2024 at 11:10
--- NOTE | 2024-01-04 10:27 | EKG_ITS ---
[facility] [address] [place] [address] Test Date: 2024-01-04 Pat Name: Nancy Rea Department: [facility] Room: Gender: Female [employer]drolog[employer] Modeler: KHADIJAH : 1980 Requested By: Order Number: [id number] Reading MD: Brayden Choi Measurements Intervals [place] Rate: 110 P: 49 IL: 144 QRS: 49 QRSD: 88 T: 112 QT: 332 QTc: 449 Interpretive Statements Sinus tachycardia Nonspecific ST and T wave abnormality Electronically Signed On 01-04-2024 14:31:35 PDT by Brayden Choi
[2024-01-04 10:57] LABS: Prothrombin Time 11.2 SECONDS (9.4-12.5)
[2024-01-04 10:58] LABS: Add Manual Diff / Slide Review NO; Basophils Absolute Auto 100 /uL (0-100); Basophils Percent Auto 0.6 % (0-2); Eosinophils Absolute Auto 200 /uL (0-450); Eosinophils Percent Auto 1.7 % (2-4); Hematocrit 28.2 % (36-46); Hemoglobin 9.4 g/dL (12.0-16.0); Lymphocytes Absolute Auto 1800 /uL (1100-4500); Lymphocytes Percent Auto 16.8 % (25-40); Mean Corpuscular HGB Conc 33.4 % (30-36); Mean Corpuscular Hemoglobin 27.3 PG (26-34); Mean Corpuscular Volume 81.8 fL (80-100); Monocytes Absolute Auto 500 /uL (0-900); Monocytes Percent Auto 4.4 % (3-14); Neutrophils Absolute Auto 8200 /uL (1500-7000); Neutrophils Percent Auto 76.5 % (50-75); Platelet Count 380 X10^3/uL (150-400); Red Blood Cell Count 3.44 X10^6/uL (4.0-5.2); Red Cell Distribution Width 14.4 % (11.6-14.8); White Blood Cell Count 10.7 X10^3/uL (4.5-11.0)
[2024-01-04 11:00] LABS: PTT Partial Thromboplastin Tim 38 SECONDS (25.1-36.5)
[2024-01-04 11:02] LABS: Alanine Aminotransferase 18 IU/L (<35); Albumin 3.5 g/dL (3.5-5.0); Alkaline Phosphatase 86 U/L (38-126); Aspartate Aminotransferase 22 IU/L (14-36); BUN Creatinine Ratio 22.2 (6-22); Bilirubin Total 0.5 mg/dL (0.2-1.3); Blood Urea Nitrogen 16 mg/dL (7-17); Calcium 7.9 mg/dL (8.4-10.2); Carbon Dioxide 19 mmol/L (22-32); Chloride 110 mmol/L (98-107); Creatine Kinase 206 U/L (30-135); Estimated Glomerular Filt Rate > 60 mL/min (>60); Globulin 3.5 g/dL (1.7-4.1); Glucose 256 mg/dL (70-100); HEMOLYSIS < 15 (0-50); Lipase 23 U/L (23-300); Magnesium 1.7 mg/dL (1.6-2.3); Potassium 3.5 mmol/L (3.4-5.1); Sodium 136 mmol/L (137-145)
[2024-01-04 11:13] LABS: NT-proBNP (BNP-Adult 18+) 4070 pg/mL (<125); Troponin I 0.094 ng/mL (0.01-0.034)
--- NOTE | 2024-01-04 11:25 | DI.CT.S_ITS ---
PROCEDURE: CT ANGIO CHEST PE PROTOCOL INDICATIONS: Dyspnea TECHNIQUE: After the administration of intravenous contrast, 2 mm thick sections acquired from the pulmonary apices to the posterior costophrenic angles. 3-dimensional maximum intensity projection (MIP) coronal and sagittal reformats were then acquired through the thorax. For radiation dose reduction, the following was used: automated exposure control, adjustment of mA and/or kV according to patient size. COMPARISON: [facility], CT, CT CHEST ABD PEL W CON, 04/30/2022, 5:01. [facility], CR, XR CHEST 1V, 01/04/2024, 10:25. FINDINGS: Image quality: Diagnostic. Pulmonary arteries: Pulmonary arteries are normal in size, and demonstrate no intraluminal filling defects to suggest central pulmonary embolism. Lower Neck: No enlarged lymph nodes. Thyroid: No thyroid nodules which require sonographic follow up, per consensus guidelines. Axillae: No enlarged lymph nodes. Chest Wall: Unremarkable. Bones: Unremarkable. Lungs and Pleura: No pneumothorax . Moderate bilateral pleural effusions are present. There is severe bilateral basilar predominant interstitial and ground-glass pulmonary opacity. Heart: Heart size is normal. Calcification of the coronary vasculature is present. No pericardial effusion. Thoracic Vessels: No aortic aneurysm. Mediastinum and Veronique: Multiple enlarged mediastinal lymph nodes are present, largest of which are in the prevascular location measuring 11 mm short axis, the right paratracheal location measuring 16 mm short axis and the subcarinal location measuring 22 mm short axis. Mildly prominent bilateral hilar lymph nodes are present. Esophagus: No wall thickening. No hiatal hernia. Upper Abdomen: No change in peripherally calcified low-density focus at the hepatic hilum measuring roughly 15 mm diameter. IMPRESSION: 1. No change in bilateral pulmonary opacities compared to same-day plain film, most suggestive of pneumonia. Presumably reactive mediastinal hilar adenopathy. Follow-up chest CT with contrast in 3 months recommended to ensure resolution and exclude underlying neoplasm. 2. No evidence of coexisting pulmonary embolus. 3. Bilateral pleural effusions. 4. Coronary artery disease. Dictated by: Cb Valentine M.D. on 01/04/2024 at 12:09 Approved by: Cb Valentine M.D. on 01/04/2024 at 12:18
--- NOTE | 2024-01-04 11:26 | ED.CHESTPAIN ---
HPI - Chest Pain General Chief Complaint: Chest Pain Stated Complaint: Hard Time breathing Time Seen by Provider: 01/04/24 11:20 Source: patient Mode of arrival: Ambulatory Limitations: no limitations History of Present Illness HPI narrative: Patient here for complaints of reproducible substernal chest pain/burning sensation with deep breath and walking. Feels short of breath. No cardiac or lung history but does have history of diabetes. Patient seen here 2 days ago treatment for UTI. Today symptoms started in the past 24 hours. No prior history of heart attack or strokes. EKG sinus tachycardia with elevated troponin. Repeat troponin will be done in [address] chest ordered. Related Data Home Medications Medication Instructions Recorded Confirmed duloxetine 20 mg capsule,delayed 40 mg PO ONCE PM 01/04/24 01/04/24 release empagliflozin 25 mg tablet 25 mg PO QAM 01/04/24 01/04/24 (Jardiance) famotidine 20 mg tablet 20 mg PO BID PRN STOMACH ACID 01/04/24 01/04/24 gabapentin 300 mg capsule 1 mg PO TID 01/04/24 01/04/24 insulin aspart U-100 100 unit/mL See Rx Instructions .Route .COMPLEX 01/04/24 01/04/24 subcutaneous solution (Novolog U-100 Insulin aspart) metformin 500 mg tablet,extended 1,000 mg PO BID 01/04/24 01/04/24 release 24 hr rosuvastatin 20 mg tablet 20 mg PO QPM 01/04/24 01/04/24 losartan 25 mg tablet 25 mg PO DAILY 01/05/24 Previous Rx's Medication Instructions Recorded lovastatin 20 mg tablet 20 mg PO HS #30 tabs 04/05/16 insulin glargine 100 unit/mL 30 unit (0.3 mL) SQ BID #1 vial 03/29/17 subcutaneous solution (Lantus U-100 Insulin) cefpodoxime 200 mg tablet 200 mg PO Q12H #20 tabs 01/02/24 Allergies Allergy/AdvReac Type Severity Reaction Status Date / Time mushroom [MUSHROOM] Allergy Unknown Verified 01/02/24 00:44 anti coagulation Allergy Unknown Uncoded 01/04/24 14:04 Review of Systems Review of Systems Narrative: GENERAL: negative chills, fatigue, malaise, fever, sweats. HEENT: negative sinus pain, ear pain, sore throat RESPIRATORY: Positive dyspnea, cough CARDIOVASCULAR: Positive chest pain, negative palpitations GASTROINTESTINAL: negative nausea, vomiting, abdominal pain : negative dysuria, frequency, hematuria MUSCULOSKELETAL: negative muscle or bony pain SKIN: negative rash, skin lesions NEUROLOGIC: negative weakness, numbness Patient History Surgical History Status post delivery Status post delivery Family History Father Cancer Hypertension High cholesterol Diabetes mellitus Mother Diabetes mellitus Hypertension Hyperlipidemia Sister Age: 48 Diabetes mellitus High cholesterol Hypertension Social History household members: significant other Smoking Status: Current every day smoker alcohol intake: current Smoking Status: Current every day smoker tobacco type: cigarettes and vaping alcohol intake frequency: holidays/special occasions only Substance Use Type: marijuana Exam Narrative Exam Narrative: GENERAL: in no distress, not toxic not dyspneic HEAD: Normocephalic. EYES: Pupils equal round ENT: Mucous membranes moist. NECK: Trachea midline. CARDIOVASCULAR: Regular rate and rhythm RESPIRATORY: Patient is speaking full sentences. No respiratory distress, there is diminished bilateral basilar lung sounds and mild rhonchi. As discomfort in the chest with deep breath and movement. GASTROINTESTINAL: Abdomen soft, non-tender EXTREMITIES: No gross deformities. BACK: No flank tenderness. NEURO: AOx4. SKIN: Warm and dry PSYCH: Not anxious, is cooperative Initial Vital Signs Initial Vital Signs: Vital Signs Temperature 98.7 F 01/04/24 10:18 Pulse Rate 114 H 01/04/24 10:18 Respiratory Rate 18 01/04/24 10:18 Blood Pressure 124/72 01/04/24 10:18 Pulse Oximetry 95 01/04/24 10:18 Oxygen Delivery Method Room Air 01/04/24 10:18 Course Orders Ordered: Discontinued Medications Acetaminophen (Acetaminophen 325 Mg Tablet) 650 mg PO Q6H PRN PRN Reason: Fever/Mild Pain (1-3) Last Admin: 01/05/24 05:48 Dose: 650 mg Documented By: CARMEN Aspirin (Aspirin 81 Mg Chew Tab) 324 mg PO NOW ONE Stop: 01/04/24 10:21 Last Admin: 01/04/24 11:32 Dose: 324 mg Documented By: ADRIA Heparin Sodium (Porcine) (Heparin 5,000 Unit/Ml Vial) 5,000 unit SUBCUT BID [facility] Last Admin: 01/05/24 08:14 Dose: Not Given Documented By: Admin: 01/04/24 20:57 Dose: 5,000 unit Documented By: CARMEN Hydromorphone HCl (Hydromorphone 1 Mg Inj) 1 mg IV NOW ONE Stop: 01/04/24 21:58 Last Admin: 01/04/24 22:05 Dose: 1 mg Documented By: CARMEN Sodium Chloride (Normal Saline 0.9%) 500 mls @ 1,000 mls/hr IV BOLUS ONE Stop: 01/04/24 11:54 Last Infusion: 01/04/24 12:19 Dose: Infused Documented By: Admin: 01/04/24 11:32 Dose: 1,000 mls/hr Documented By: ADRIA Ceftriaxone Sodium 2,000 mg/ (Sodium Chloride) 100 mls @ 200 mls/hr IV NOW ONE Stop: 01/04/24 14:09 Last Infusion: 01/04/24 14:54 Dose: 0 mls/hr Documented By: Admin: 01/04/24 14:34 Dose: 200 mls/hr Documented By: ADRIA Azithromycin 500 mg/ Dextrose 250 mls @ 250 mls/hr IV NOW ONE Stop: 01/04/24 14:09 Last Admin: 01/04/24 15:38 Dose: 250 mls/hr Documented By: JOYCELYN Sodium Chloride (Normal Saline 0.45%) 1,000 mls @ 100 mls/hr IV CONT [facility] Last Admin: 01/05/24 01:04 Dose: 100 mls/hr Documented By: Infusion: 01/05/24 01:04 Dose: Infused Documented By: Admin: 01/04/24 15:39 Dose: 100 mls/hr Documented By: JOYCELYN Ceftriaxone Sodium 1,000 mg/ (Sodium Chloride) 100 mls @ 200 mls/hr IV Q24H [facility] Stop: 01/08/24 13:59 Azithromycin 500 mg/ Dextrose 250 mls @ 250 mls/hr IV Q24H [facility] Stop: 01/06/24 15:59 Dextrose (D10w) 100 mls @ 999 mls/hr IV PRN PRN PRN Reason: Hypoglycemia Insulin Glargine (Insulin Glargine 100 Unit/Ml 3ml Pen) 30 unit SUBCUT BID [facility] Last Admin: 01/05/24 08:08 Dose: 30 unit Documented By: JOYCELYN Co-signed By: MAIDA Admin: 01/04/24 20:58 Dose: 30 unit Documented By: CARMEN Co-signed By: JUD Insulin Human Lispro (Insulin Lispro 100 Unit/Ml 3ml Vial) 0 unit SUBCUT ACHS [facility]; Protocol Last Admin: 01/05/24 08:07 Dose: 5 unit Documented By: JOYCELYN Co-signed By: MAIDA Admin: 01/04/24 20:59 Dose: Not Given Documented By: Admin: 01/04/24 15:52 Dose: 5 unit Documented By: JOYCELYN Co-signed By: JUD Naloxone HCl (Naloxone 0.4 Mg/Ml Vial) 0.2 mg IV Q2MIN PRN PRN Reason: Opiate Reversal Ondansetron HCl (Ondansetron 4 Mg/2 Ml Inj) 4 mg IV Q8HR PRN PRN Reason: Nausea And Vomiting Oxycodone HCl (Oxycodone Ir 5 Mg Tablet) 5 mg PO Q6HR TRUMAN Oxycodone HCl (Oxycodone Ir 5 Mg Tablet) 5 mg PO Q6HR PRN PRN Reason: Pain, Moderate (4-6) Last Admin: 01/05/24 05:49 Dose: 5 mg Documented By: Admin: 01/04/24 21:48 Dose: 5 mg Documented By: CARMEN Simethicone (Simethicone 80 Mg Tablet) 160 mg PO QID PRN PRN Reason: Flatulence Last Admin: 01/05/24 08:08 Dose: 160 mg Documented By: Admin: 01/04/24 21:17 Dose: 160 mg Documented By: CARMEN Vital Signs Vital signs: Vital Signs - 8 hr 01/04/24 10:18 01/04/24 10:19 01/04/24 10:20 Temperature 98.7 F Pulse Rate 114 H 117 H Respiratory Rate 18 Blood Pressure 124/72 119/72 Pulse Oximetry 95 95 Oxygen Delivery Method Room Air Room Air 01/04/24 10:20 01/04/24 10:30 01/04/24 10:30 Temperature Pulse Rate 119 H 107 H Respiratory Rate 20 Blood Pressure 121/76 Pulse Oximetry Oxygen Delivery Method 01/04/24 11:00 01/04/24 11:00 01/04/24 11:30 Temperature Pulse Rate 108 H Respiratory Rate 22 Blood Pressure 126/83 125/82 Pulse Oximetry 94 Oxygen Delivery Method Room Air 01/04/24 11:30 01/04/24 11:44 01/04/24 11:44 Temperature Pulse Rate 108 H 104 H Respiratory Rate 24 Blood Pressure 125/79 Pulse Oximetry 94 95 Oxygen Delivery Method 01/04/24 12:00 01/04/24 12:01 01/04/24 12:01 Temperature Pulse Rate 103 H 103 H Respiratory Rate 21 18 Blood Pressure 132/79 Pulse Oximetry 92 92 Oxygen Delivery Method 01/04/24 12:30 01/04/24 12:30 01/04/24 13:00 Temperature Pulse Rate 104 H Respiratory Rate 19 Blood Pressure 135/85 134/82 Pulse Oximetry 95 Oxygen Delivery Method Room Air 01/04/24 13:00 01/04/24 13:30 01/04/24 13:30 Temperature Pulse Rate 105 H 106 H Respiratory Rate 18 18 Blood Pressure 115/77 Pulse Oximetry 94 94 Oxygen Delivery Method Room Air 01/04/24 13:40 01/04/24 13:40 01/04/24 13:44 Temperature Pulse Rate 112 H 112 H Respiratory Rate Blood Pressure 123/79 Pulse Oximetry 95 94 Oxygen Delivery Method MDM - Chest Pain Lab Data 01/05/24 04:44 01/05/24 04:44 Labs: Lab Results 01/04/24 01/04/24 01/04/24 Range/Units 10:37 11:34 12:32 WBC 10.7 (4.5-11.0) X10^3/uL RBC 3.44 L (4.0-5.2) X10^6/uL Hgb 9.4 L (12.0-16.0) g/dL Hct 28.2 L (36-46) % MCV 81.8 (80-100) fL MCH 27.3 (26-34) PG MCHC 33.4 (30-36) % RDW 14.4 (11.6-14.8) % Plt Count 380 (150-400) X10^3/uL Neut % (Auto) 76.5 H (50-75) % Lymph % (Auto) 16.8 L (25-40) % [place] % (Auto) 4.4 (3-14) % Eos % (Auto) 1.7 L (2-4) % Baso % (Auto) 0.6 (0-2) % Neut # (Auto) 8200 H (5001-1836) /uL Lymph # (Auto) 1800 (4180-9730) /uL [place] # (Auto) 500 (0-900) /uL Eos # (Auto) 200 (0-450) /uL Baso # (Auto) 100 (0-100) /uL PT 11.2 (9.4-12.5) SECONDS INR 1.0 (0.9-1.3) APTT 38 H (25.1-36.5) SECONDS Sodium 136 L (137-145) mmol/L Potassium 3.5 (3.4-5.1) mmol/L Chloride 110 H (98-107) mmol/L Carbon Dioxide 19 L (22-32) mmol/L BUN 16 (7-17) mg/dL Creatinine 0.72 (0.52-1.04) mg/dL Estimated GFR > 60 (>60) mL/min BUN/Creatinine Ratio 22.2 H (6-22) Glucose 256 H (70-100) mg/dL Lactate 1.5 (0.7-2.1) mmol/L Calcium 7.9 L (8.4-10.2) mg/dL Magnesium 1.7 (1.6-2.3) mg/dL Total Bilirubin 0.5 (0.2-1.3) mg/dL AST 22 (14-36) IU/L ALT 18 (<35) IU/L Alkaline Phosphatase 86 (38-126) U/L Total Creatine Kinase 206 H (30-135) U/L Troponin I 0.094 H 0.099 H (0.01-0.034) ng/mL NT-Pro-B Natriuret Pep 4070 H (<125) pg/mL Total Protein 7.0 (6.3-8.2) g/dL Albumin 3.5 (3.5-5.0) g/dL Globulin 3.5 (1.7-4.1) g/dL Albumin/Globulin Ratio 1.0 (1.0-2.8) Lipase 23 (23-300) U/L Procalcitonin 0.043 (<0.5) ng/mL Chlamy pneumoniae PCR Not detected (Not Detect) Adenovirus (PCR) Not detected (Not Detect) B.parapertussis DNA PCR Not detected (Not Detecte) Coronavirus OC43 (PCR) Not detected (Not Detect) Coronavirus HKU1 (PCR) Not detected (Not Detect) Coronavirus 229E (PCR) Not detected (Not Detect) SARS-CoV-2 (PCR) Not detected (Not Detecte) Coronavirus NL63 (PCR) Not detected (Not Detect) Human Metapneumovir PCR Not detected (Not Detect) Influenza Type A (PCR) Not detected (Not Detect) Influenza Type B (PCR) Not detected (Not Detect) M. pneumoniae (PCR) Not detected (Not Detect) Parainfluenza 1 (PCR) Not detected (Not Detect) Parainfluenza 2 (PCR) Not detected (Not Detect) Parainfluenza 3 (PCR) Not detected (Not Detect) Parainfluenza 4 (PCR) Not detected (Not Detect) RSV (PCR) Not detected (Not Detect) Entero/Rhino (PCR) Not detected (Not Detect) 01/04/24 01/04/24 01/05/24 Range/Units 17:10 23:41 04:44 WBC 13.2 H (4.5-11.0) X10^3/uL RBC 3.30 L (4.0-5.2) X10^6/uL Hgb 8.9 L (12.0-16.0) g/dL Hct 27.2 L (36-46) % MCV 82.3 (80-100) fL MCH 26.8 (26-34) PG MCHC 32.6 (30-36) % RDW 14.6 (11.6-14.8) % Plt Count 332 (150-400) X10^3/uL Neut % (Auto) 78.0 H (50-75) % Lymph % (Auto) 15.5 L (25-40) % [place] % (Auto) 4.7 (3-14) % Eos % (Auto) 1.2 L (2-4) % Baso % (Auto) 0.6 (0-2) % Neut # (Auto) 85781 H (0453-9226) /uL Lymph # (Auto) 2000 (4385-0482) /uL [place] # (Auto) 600 (0-900) /uL Eos # (Auto) 200 (0-450) /uL Baso # (Auto) 100 (0-100) /uL PT (9.4-12.5) SECONDS INR (0.9-1.3) APTT (25.1-36.5) SECONDS Sodium 133 L (137-145) mmol/L Potassium 3.8 (3.4-5.1) mmol/L Chloride 108 H (98-107) mmol/L Carbon Dioxide 20 L (22-32) mmol/L BUN 19 H (7-17) mg/dL Creatinine 0.65 (0.52-1.04) mg/dL Estimated GFR > 60 (>60) mL/min BUN/Creatinine Ratio 29.2 H (6-22) Glucose 279 H (70-100) mg/dL Lactate (0.7-2.1) mmol/L Calcium 7.9 L (8.4-10.2) mg/dL Magnesium (1.6-2.3) mg/dL Total Bilirubin (0.2-1.3) mg/dL AST (14-36) IU/L ALT (<35) IU/L Alkaline Phosphatase (38-126) U/L Total Creatine Kinase (30-135) U/L Troponin I 0.117 H 0.093 H (0.01-0.034) ng/mL NT-Pro-B Natriuret Pep (<125) pg/mL Total Protein (6.3-8.2) g/dL Albumin (3.5-5.0) g/dL Globulin (1.7-4.1) g/dL Albumin/Globulin Ratio (1.0-2.8) Lipase (23-300) U/L Procalcitonin (<0.5) ng/mL Chlamy pneumoniae PCR (Not Detect) Adenovirus (PCR) (Not Detect) B.parapertussis DNA PCR (Not Detecte) Coronavirus OC43 (PCR) (Not Detect) Coronavirus HKU1 (PCR) (Not Detect) Coronavirus 229E (PCR) (Not Detect) SARS-CoV-2 (PCR) (Not Detecte) Coronavirus NL63 (PCR) (Not Detect) Human Metapneumovir PCR (Not Detect) Influenza Type A (PCR) (Not Detect) Influenza Type B (PCR) (Not Detect) M. pneumoniae (PCR) (Not Detect) Parainfluenza 1 (PCR) (Not Detect) Parainfluenza 2 (PCR) (Not Detect) Parainfluenza 3 (PCR) (Not Detect) Parainfluenza 4 (PCR) (Not Detect) RSV (PCR) (Not Detect) Entero/Rhino (PCR) (Not Detect) Point of Care Testing Test Results Negative Urine Dip Bedside Urine Glucose 1000 mg/dl Bedside Urine Bilirubin - Negative Bedside Urine Ketone - Negative Urine Specific [place] 1.030 Bedside Urine Occult Blood ++ Bedside Urine pH 6.0 Bedside Urine Protein ++ 100 Bedside Urine Urobilinogen - Negative Bedside Urine Nitrite - Negative Bedside Urine Leukocytes - Negative Esterase MDM Narrative Medical decision making narrative: Patient here for complaints of reproducible substernal chest pain/burning sensation with deep breath and walking. Feels short of breath. No cardiac or lung history but does have history of diabetes. Patient seen here 2 days ago treatment for UTI. Today symptoms started in the past 24 hours. No prior history of heart attack or strokes. EKG sinus tachycardia with elevated troponin. Repeat troponin will be done in [address] chest ordered. After history and exam CBC CMP troponin EKG normal saline, repeat troponin, CT chest PE protocol respiratory panel BNP, aspirin, cardiology consult, likely admit, denies does not want a test MDM Medical records reviewed: Patient seen here for UTI 2 days ago Differential considered: Includes but not limited to STEMI non-STEMI pneumonia pulmonary embolism CHF endocarditis myocarditis Lab Test results independently reviewed as above. Pertinent findings: WBC 10.7 hemoglobin 9.4 INR 1.0 sodium 136 potassium 3.5 BUN 16 creatinine 0.72 GFR greater than 60 total CK 206. Troponin 0.094 BNP 4070 Independently reviewed EKG EKG sinus tachycardia rate 110 Imaging studies independently reviewed: CT chest likely pneumonia Consultations: 2:[address] Choi/Spoke with hospitalist agrees for admission, cardiac enzymes likely cardiac demand from pneumonia. No heparin indicated this time. Treatments: Aspirin normal saline, Rocephin Zithromax Re-evaluations: 2:10 p.m.. Updated patient results and agrees for admission. She did ambulate, not requiring supplemental oxygen however was dyspneic Discussion: Appropriate for admission for IV antibiotics, troponin is likely cardiac demand. No heparin indicated at this time. Diagnosis: Community acquired pneumonia Discharge Plan Departure Patient Disposition: Admitted as Observation Clinical Impression: Community acquired pneumonia Qualifiers: Laterality: unspecified laterality Qualified Code(s): J18.9 - Pneumonia, unspecified organism Admit Date/Time: 01/05/24 08:45 Admit Provider: Brayden Choi
[2024-01-04] MEDS: SODIUM CHLORIDE 0.9% 500 ML 1000 ML IV (11:32)
[2024-01-04] MEDS: ASPIRIN 81 MG CHEW TAB 324 MG PO (11:32)
[2024-01-04 12:29] LABS: Adenovirus Not Detected (Not Detect); B. parapertussis Not Detected (Not Detecte); Bordetella pertussis Not Detected (Not Detect); Chlamydophila pneumoniae Not Detected (Not Detect); Coronavirus 229E Not Detected (Not Detect); Coronavirus HKU1 Not Detected (Not Detect); Coronavirus NL 63 Not Detected (Not Detect); Coronavirus OC43 Not Detected (Not Detect); Human Metapneumovirus Not Detected (Not Detect); Human Rhinovirus/Enterovirus Not Detected (Not Detect); Influenza A Not Detected (Not Detect); Influenza B Not Detected (Not Detect); Mycoplasma pneumoniae Not Detected (Not Detect); Parainfluenza Virus 1 Not Detected (Not Detect); Parainfluenza Virus 2 Not Detected (Not Detect); Parainfluenza Virus 3 Not Detected (Not Detect); Parainfluenza Virus 4 Not Detected (Not Detect); Respiratory Syncytial Virus Not Detected (Not Detect); SARS- CoV-2 Not Detected (Not Detecte)
[2024-01-04 13:05] LABS: Troponin I 0.099 ng/mL (0.01-0.034)
[2024-01-04 14:23] LABS: Lactate (Lactic Acid) 1.5 mmol/L (0.7-2.1)
[2024-01-04] MEDS: cefTRIAXone 2,000 MG in SODIUM CHLORIDE 0.9% 100 ML 200 MG IV (14:34)
[2024-01-04 14:40] LABS: Procalcitonin 0.043 ng/mL (<0.5)
--- NOTE | 2024-01-04 14:50 | PM.HP.1 ---
History of Present Illness History of Present Illness Date Patient Seen: 01/04/24 Time Patient Seen: 15:33 Chief complaint: Hard Time breathing Narrative: From ED provider: Patient here for complaints of reproducible substernal chest pain/burning sensation with deep breath and walking. Feels short of breath. No cardiac or lung history but does have history of diabetes. Patient seen here 2 days ago treatment for UTI. Today symptoms started in the past 24 hours. No prior history of heart attack or strokes. EKG sinus tachycardia with elevated troponin. Repeat troponin will be done in [address] chest ordered. Subjective: The patient has been ill for about 2 days with fatigue, dyspnea at rest and with exertion, as well as mild chest pressure. She was no cardiac history. In the emergency department she had a tachycardia with a minimally elevated troponin. She was started on IV antibiotics for possible pneumonia and urine was consistent with a urine tract infection. She denies any nausea, or emesis. No diarrhea. She checks her sugars about once a day and notes that they run in the 200s. She has no known cardiac history. [facility] Surgical History Status post delivery Status post delivery Family History Father Cancer Hypertension High cholesterol Diabetes mellitus Mother Diabetes mellitus Hypertension Hyperlipidemia Sister Age: 48 Diabetes mellitus High cholesterol Hypertension Social History Smoking Status: Current every day smoker Meds Home Medications and Allergies Home Medications Medication Instructions Recorded Confirmed Type hydrocodone 5 mg-acetaminophen 325 0 tab PO QHS PRN PRN #30 tabs 04/05/16 Rx mg tablet insulin glargine 100 unit/mL 30 u SQ BID #1 vial 04/05/16 Rx subcutaneous solution (Lantus U-100 Insulin) lovastatin 20 mg tablet 20 mg PO HS #30 tabs 04/05/16 Rx [place] 0 dev BID ##1 09/08/16 Rx Syringes 0 syr BID #100 ea 09/08/16 Rx insulin aspart U-100 100 unit/mL 30 unit (0.3 mL) SQ BID #1 vial 09/08/16 Rx subcutaneous solution (Novolog U-100 Insulin aspart) Glucose: Home Monitoring Kit kit ##1 10/24/17 Rx [place] packet BID ##1 03/29/17 Rx Syringes: 1cc Insulin Syringes syr ##100 03/29/17 Rx with [place] insulin aspart U-100 100 unit/mL 30 u SQ BID ##1 03/29/17 Rx subcutaneous solution (Novolog U-100 Insulin aspart) insulin glargine 100 unit/mL 30 unit (0.3 mL) SQ BID #1 vial 03/29/17 Rx subcutaneous solution (Lantus U-100 Insulin) cefpodoxime 200 mg tablet 200 mg PO Q12H #20 tabs 01/02/24 Rx Allergies Allergy/AdvReac Type Severity Reaction Status Date / Time mushroom [MUSHROOM] Allergy Unknown Verified 01/02/24 00:44 anti coagulation Allergy Unknown Uncoded 01/04/24 14:04 Review of Systems Review of Systems Narrative: All else reviewed and otherwise unremarkable except as noted in the history and physical. Exam Vital Signs (past 8 hours): - 01/04/24 10:18 01/04/24 10:19 01/04/24 10:20 Temperature 98.7 F Pulse Rate 114 H 117 H Respiratory Rate 18 Blood Pressure 124/72 119/72 Pulse Oximetry 95 95 Oxygen Delivery Method Room Air Room Air 01/04/24 10:20 01/04/24 10:30 01/04/24 10:30 Temperature Pulse Rate 119 H 107 H Respiratory Rate 20 Blood Pressure 121/76 Pulse Oximetry Oxygen Delivery Method 01/04/24 11:00 01/04/24 11:00 01/04/24 11:30 Temperature Pulse Rate 108 H Respiratory Rate 22 Blood Pressure 126/83 125/82 Pulse Oximetry 94 Oxygen Delivery Method Room Air 01/04/24 11:30 01/04/24 11:44 01/04/24 11:44 Temperature Pulse Rate 108 H 104 H Respiratory Rate 24 Blood Pressure 125/79 Pulse Oximetry 94 95 Oxygen Delivery Method 01/04/24 12:00 01/04/24 12:01 01/04/24 12:01 Temperature Pulse Rate 103 H 103 H Respiratory Rate 21 18 Blood Pressure 132/79 Pulse Oximetry 92 92 Oxygen Delivery Method 01/04/24 12:30 01/04/24 12:30 01/04/24 13:00 Temperature Pulse Rate 104 H Respiratory Rate 19 Blood Pressure 135/85 134/82 Pulse Oximetry 95 Oxygen Delivery Method Room Air 01/04/24 13:00 01/04/24 13:30 01/04/24 13:30 Temperature Pulse Rate 105 H 106 H Respiratory Rate 18 18 Blood Pressure 115/77 Pulse Oximetry 94 94 Oxygen Delivery Method Room Air 01/04/24 13:40 01/04/24 13:40 01/04/24 13:44 Temperature Pulse Rate 112 H 112 H Respiratory Rate Blood Pressure 123/79 Pulse Oximetry 95 94 Oxygen Delivery Method 01/04/24 14:00 01/04/24 14:00 01/04/24 14:30 Temperature Pulse Rate 106 H Respiratory Rate 22 Blood Pressure 136/88 123/77 Pulse Oximetry 96 Oxygen Delivery Method Room Air 01/04/24 14:30 Temperature Pulse Rate 105 H Respiratory Rate 23 Blood Pressure Pulse Oximetry 95 Oxygen Delivery Method Oxygen Delivery Method Room Air Narrative Exam Narrative: NAD, alert and oriented, fluent speech, calm. Normocephalic skull, EOMI, anicteric sclera, symmetric pupils. Oropharynx unremarkable, no droop. Neck supple, midline trachea, no adenopathy. Lungs clear except for some rhonchi in the bases, normal rate and effort. Heart regular, no murmur gallop or rub. Abdomen is soft, non distended and non tender. Extremities are free of edema. Skin is free of rash or lesions. Joints are not swollen or deformed. Judgment appears to be normal. Objective ECG Impression: atient here for complaints of reproducible substernal chest pain/burning sensation with deep breath and walking. Feels short of breath. No cardiac or lung history but does have history of diabetes. Patient seen here 2 days ago treatment for UTI. Today symptoms started in the past 24 hours. No prior history of heart attack or strokes. EKG sinus tachycardia with elevated troponin. Repeat troponin will be done in [address] chest ordered. Imaging CT scan - chest: Radiologist's impression: 1. No change in bilateral pulmonary opacities compared to same-day plain film, most suggestive of pneumonia. Presumably reactive mediastinal hilar adenopathy. Follow-up chest CT with contrast in 3 months recommended to ensure resolution and exclude underlying neoplasm. 2. No evidence of coexisting pulmonary embolus. 3. Bilateral pleural effusions. 4. Coronary artery disease. Chest x-ray: Radiologist's impression: Bilateral edema versus pneumonia. Labs 01/04/24 10:37 07/31/24 10:37 Labs: Laboratory Results - last 24 hr 01/04/24 01/04/24 01/04/24 10:37 11:34 12:32 WBC 10.7 RBC 3.44 L Hgb 9.4 L Hct 28.2 L MCV 81.8 MCH 27.3 MCHC 33.4 RDW 14.4 Plt Count 380 Neut % (Auto) 76.5 H Lymph % (Auto) 16.8 L [place] % (Auto) 4.4 Eos % (Auto) 1.7 L Baso % (Auto) 0.6 Neut # (Auto) 8200 H Lymph # (Auto) 1800 [place] # (Auto) 500 Eos # (Auto) 200 Baso # (Auto) 100 PT 11.2 INR 1.0 APTT 38 H Sodium 136 L Potassium 3.5 Chloride 110 H Carbon Dioxide 19 L BUN 16 Creatinine 0.72 Estimated GFR > 60 BUN/Creatinine Ratio 22.2 H Glucose 256 H Lactate 1.5 Calcium 7.9 L Magnesium 1.7 Total Bilirubin 0.5 AST 22 ALT 18 Alkaline Phosphatase 86 Total Creatine Kinase 206 H Troponin I 0.094 H 0.099 H NT-Pro-B Natriuret Pep 4070 H Total Protein 7.0 Albumin 3.5 Globulin 3.5 Albumin/Globulin Ratio 1.0 Lipase 23 Procalcitonin 0.043 Chlamy pneumoniae PCR Not detected Adenovirus (PCR) Not detected B.parapertussis DNA PCR Not detected Coronavirus OC43 (PCR) Not detected Coronavirus HKU1 (PCR) Not detected Coronavirus 229E (PCR) Not detected SARS-CoV-2 (PCR) Not detected Coronavirus NL63 (PCR) Not detected Human Metapneumovir PCR Not detected Influenza Type A (PCR) Not detected Influenza Type B (PCR) Not detected M. pneumoniae (PCR) Not detected Parainfluenza 1 (PCR) Not detected Parainfluenza 2 (PCR) Not detected Parainfluenza 3 (PCR) Not detected Parainfluenza 4 (PCR) Not detected RSV (PCR) Not detected Entero/Rhino (PCR) Not detected Assessment & Plan Assessment & Plan narrative: 1. Possible community-acquired pneumonia, present on admission and active. 2. Elevated troponin, possible demand ischemia. Present on admission and active. 3. Diabetes mellitus, insulin-dependent with poor control, present on admission and active. PLAN: -IV ceftriaxone and Azithro. -blood cultures. -trend troponins -ECHO Observation status, anticipate 1 night of medical necessity. Full resuscitation. Time-Based Coding :: 30 minspent with patient and on the chart (including review of chart, obtaining history, exam, reviewing outside data, placing orders, documenting exam and treatment plan, and counseling patient) on 01/03. Quality MIPS - Admit I confirm the patient?s Advance Care Plan is present, Code status is documented, Surrogate decision maker is in patient?s record [If Yes, STOP here]: Yes MIPS - Meds 'Current medications' to include all prescriptions, [id number] products, herbals, cannabis/cannabidiol products, and vitamin/mineral/dietary (nutritional) supplements. I have utilized all available resources to obtain, update, or review the patient?s current medications. [If Yes, STOP here]: Yes
[2024-01-04] MEDS: AZITHROMYCIN 500 MG in DEXTROSE 5% IN WATER 250 ML 250 MG IV (15:38)
--- NOTE | 2024-01-04 15:38 | DI.ECHO.S_ITS ---
[place] [facility] : : [address] : : [place] : : [id number] : : Phone: [phone] Echocardiogram Report + + :Name: JANNY LOPEZ Study Date: 01/05/2024 Height: 65 in : :[facility] ReadingLocation: Weight: 170 lb : : Gender: Female BSA: 1.8 m2 : :: 1980 Age: 43 yrs BP: 121/76 mmHg: :Reason For Study: DYSPNEA : :Ordering Physician: REGAN, : :KARSON Koehler Performed By: Candy Sena : :Referring: KARSON SPEARS : + + Interpretation Summary Sinus tachycardia. Heart rate is 108 bpm. Mildly dilated left ventricle with normal wall thickness. There is severe global hypokinesis and apical akinesis. In the right clinical setting these observations could be due to stress cardiomyopathy. Ejection fraction is estimated at 20-25%. EPSS is 1.9 cm consistent with advanced cardiomyopathy. Moderate left atrial enlargement. Otherwise there are normal chamber sizes. Moderate central tricuspid regurgitation. Otherwise no significant valvular abnormalities. Estimated PA systolic pressure is 60 mmHg assuming right atrial pressure of 15 mmHg. Large left pleural effusion. There is no prior study at [facility] available for comparison. Procedure: A two-dimensional transthoracic echocardiogram with color flow and Doppler was performed. The study quality was technically adequate. There is no prior echocardiogram noted for this patient. The patient was in sinus tachycardia with heart rates between 108-112 bpm during the exam. Left Ventricle: The left ventricle is mildly dilated. There is normal left ventricular wall thickness. The ejection fraction is estimated to be 20-25%. Diastolic function could not be accurately assessed due to tachycardia. Right Ventricle: The right ventricle is normal in size and function. Atria: The left atrium is moderately dilated. Right atrial size is normal. There is no Doppler evidence for an interatrial shunt. Mitral Valve: The mitral valve leaflets appear mildly thickened, but open well. There is mild to moderate mitral regurgitation. Aortic Valve: The aortic valve is trileaflet. The aortic valve opens well. There is no aortic valve stenosis. No aortic regurgitation is present. Tricuspid Valve: The tricuspid valve is normal in structure and function. There is moderate tricuspid regurgitation. The right ventricular systolic pressure is estimated to be at least 60 mmHg based on an estimated right atrial pressure of 15 mm Hg. Pulmonic Valve: The pulmonic valve is not well visualized. There is no pulmonic valvular regurgitation. Great Vessels: The aortic root is normal size. The dimensions of the ascending aorta are normal. The IVC is of normal diameter and collapses greater than 50% with a sniff. This suggests a low right atrial pressure of 3 mm Hg. Pericardium/ Pleura There is no pericardial effusion. There is a large left- sided pleural effusion. MMode/2D Measurements & Calculations LVIDd: 5.7 cm LVOT diam: 2.3 cm LVIDs: 5.2 cm Ao root diam: 2.9 cm FS: 8.4 % asc Aorta Diam: 3.4 cm EPSS: 1.9 cm Ao Arch Diam (Prox Trans): 2.6 cm IVSd: 0.93 cm LVPWd: 0.99 cm LV grider. diameter/BSA (cm/m^2): 3.1 LV sys. diameter/BSA (cm/m^2): 2.8 LA A2 area: 22.8 cm2 RA long axis: 4.5 cm LA A4 area: 23.3 cm2 RA area: 15.2 cm2 LA length (vol): 5.3 cm RA vol: 43.9 ml LA vol: 85.6 ml RA : 23.8 ml/m2 LA vol index: 46.4 ml/m2 IVC diam: 1.9 cm RVD1 (basal): 3.2 cm RVD2 (mid): 3.2 cm TAPSE: 1.7 cm Doppler Measurements & Calculations Ao V2 max: 119.4 cm/sec LVOT Max Yoel: 69.4 cm/sec Ao V2 mean: 89.0 cm/sec LV V1 max P.9 mmHg Ao max P.7 mmHg LV V1 VTI: 11.5 cm Ao mean P.4 mmHg ALFREDA(I,D): 2.5 cm2 Ao V2 VTI: 19.5 cm ALFREDA(V,D): 2.5 cm2 sev ratio: 0.59 ALFREDA indexed to BSA (cm^2/m^2): 1.4 Lat Peak E' Yoel: 16.1 cm/sec TR max yoel: 310.5 cm/sec TR max P.8 mmHg PA V2 max: 77.9 cm/sec PA V2 mean: 57.8 cm/sec PA mean P.4 mmHg SV([facility]): 48.7 ml Electronically signed by: Krystal Jean M.D. on Reading Physician:01/05/2024 08:35 AM
[2024-01-04] MEDS: SODIUM CHLORIDE 0.45% 1,000 ML 100 ML IV (15:39)
[2024-01-04] MEDS: INSULIN LISPRO 100 UNIT/ML 3ML VIAL SUBCUT (15:52)
[2024-01-04 17:44] LABS: Troponin I 0.117 ng/mL (0.01-0.034)
--- NOTE | 2024-01-04 18:04 | PC.NURSE ---
Day shift: Notified MD Choi of patient's increasing troponin levels and patient reporting mild to moderate L flank/side pain. MD Choi stated no further action needed at this time, will continue to monitor telemetry.
[2024-01-04] MEDS: HEPARIN 5,000 UNIT/ML VIAL 5000 UNIT SUBCUT (20:57)
[2024-01-04] MEDS: INSULIN GLARGINE 100 UNIT/ML 3ML PEN 30 UNIT SUBCUT (20:58)
[2024-01-04] MEDS: SIMETHICONE 80 MG TABLET 160 MG PO (21:17)
[2024-01-04] MEDS: OXYCODONE IR 5 MG TABLET PO (21:48)
[2024-01-04] MEDS: HYDROMORPHONE 1 MG INJ IV (22:05)
[2024-01-05] VITALS: BP 117/80; PULSE 108; RESP 20; TEMP 36.7; O2SAT 86
[2024-01-05 00:11] LABS: Troponin I 0.093 ng/mL (0.01-0.034)
[2024-01-05] MEDS: SODIUM CHLORIDE 0.45% 1,000 ML 100 ML IV (01:04)
[2024-01-05 04:00] VITALS: BP 121/76; PULSE 82; RESP 19; TEMP 36.3; O2SAT 100
[2024-01-05 05:24] LABS: Add Manual Diff / Slide Review NO; Basophils Absolute Auto 100 /uL (0-100); Basophils Percent Auto 0.6 % (0-2); Eosinophils Absolute Auto 200 /uL (0-450); Eosinophils Percent Auto 1.2 % (2-4); Hematocrit 27.2 % (36-46); Hemoglobin 8.9 g/dL (12.0-16.0); Lymphocytes Absolute Auto 2000 /uL (1100-4500); Lymphocytes Percent Auto 15.5 % (25-40); Mean Corpuscular HGB Conc 32.6 % (30-36); Mean Corpuscular Hemoglobin 26.8 PG (26-34); Mean Corpuscular Volume 82.3 fL (80-100); Monocytes Absolute Auto 600 /uL (0-900); Monocytes Percent Auto 4.7 % (3-14); Neutrophils Absolute Auto 10300 /uL (1500-7000); Platelet Count 332 X10^3/uL (150-400); Red Cell Distribution Width 14.6 % (11.6-14.8); White Blood Cell Count 13.2 X10^3/uL (4.5-11.0)
[2024-01-05] MEDS: ACETAMINOPHEN 325 MG TABLET 650 MG PO (05:48)
[2024-01-05 05:49] LABS: BUN Creatinine Ratio 29.2 (6-22); Blood Urea Nitrogen 19 mg/dL (7-17); Calcium 7.9 mg/dL (8.4-10.2); Carbon Dioxide 20 mmol/L (22-32); Chloride 108 mmol/L (98-107); Estimated Glomerular Filt Rate > 60 mL/min (>60); Glucose 279 mg/dL (70-100); HEMOLYSIS < 15 (0-50); Potassium 3.8 mmol/L (3.4-5.1); Sodium 133 mmol/L (137-145)
[2024-01-05] MEDS: OXYCODONE IR 5 MG TABLET PO (05:49)
--- NOTE | 2024-01-05 07:47 | PM.PN.1 ---
Subjective Subjective Interval history: Summary: Diabetic who is insulin dependent and was admitted with possible pneumonia and chest heaviness. Mild elevation troponins with echo pending. Started on antibiotics. Subjective: Exam Vital Signs (past 8 hours): - 01/05/24 00:00 01/05/24 04:00 Temperature 98.1 F 97.4 F L Pulse Rate 108 H 82 Respiratory Rate 20 19 Blood Pressure 117/80 121/76 Pulse Oximetry 86 L 100 Oxygen Delivery Method Room Air Oxygen Flow Rate 0 Narrative Exam Narrative: NAD, alert and oriented. Fluent speech. Lungs are clear, normal rate and effort. Heart is regular, no murmur gallop or rub. Abdomen is soft, non distended. Extremities are free of edema. Objective Imaging Chest x-ray: Radiologist's impression: Bilateral edema versus pneumonia. CT scan - chest: Radiologist's impression: 1. No change in bilateral pulmonary opacities compared to same-day plain film, most suggestive of pneumonia. Presumably reactive mediastinal hilar adenopathy. Follow-up chest CT with contrast in 3 months recommended to ensure resolution and exclude underlying neoplasm. 2. No evidence of coexisting pulmonary embolus. 3. Bilateral pleural effusions. 4. Coronary artery disease. Labs 01/05/24 04:44 01/05/24 04:44 Labs: Laboratory Results - last 24 hr 01/04/24 01/04/24 01/04/24 10:37 11:34 12:32 WBC 10.7 RBC 3.44 L Hgb 9.4 L Hct 28.2 L MCV 81.8 MCH 27.3 MCHC 33.4 RDW 14.4 Plt Count 380 Neut % (Auto) 76.5 H Lymph % (Auto) 16.8 L [place] % (Auto) 4.4 Eos % (Auto) 1.7 L Baso % (Auto) 0.6 Neut # (Auto) 8200 H Lymph # (Auto) 1800 [place] # (Auto) 500 Eos # (Auto) 200 Baso # (Auto) 100 PT 11.2 INR 1.0 APTT 38 H Sodium 136 L Potassium 3.5 Chloride 110 H Carbon Dioxide 19 L BUN 16 Creatinine 0.72 Estimated GFR > 60 BUN/Creatinine Ratio 22.2 H Glucose 256 H Lactate 1.5 Calcium 7.9 L Magnesium 1.7 Total Bilirubin 0.5 AST 22 ALT 18 Alkaline Phosphatase 86 Total Creatine Kinase 206 H Troponin I 0.094 H 0.099 H NT-Pro-B Natriuret Pep 4070 H Total Protein 7.0 Albumin 3.5 Globulin 3.5 Albumin/Globulin Ratio 1.0 Lipase 23 Procalcitonin 0.043 Chlamy pneumoniae PCR Not detected Adenovirus (PCR) Not detected B.parapertussis DNA PCR Not detected Coronavirus OC43 (PCR) Not detected Coronavirus HKU1 (PCR) Not detected Coronavirus 229E (PCR) Not detected SARS-CoV-2 (PCR) Not detected Coronavirus NL63 (PCR) Not detected Human Metapneumovir PCR Not detected Influenza Type A (PCR) Not detected Influenza Type B (PCR) Not detected M. pneumoniae (PCR) Not detected Parainfluenza 1 (PCR) Not detected Parainfluenza 2 (PCR) Not detected Parainfluenza 3 (PCR) Not detected Parainfluenza 4 (PCR) Not detected RSV (PCR) Not detected Entero/Rhino (PCR) Not detected 01/04/24 01/04/24 01/05/24 17:10 23:41 04:44 WBC 13.2 H RBC 3.30 L Hgb 8.9 L Hct 27.2 L MCV 82.3 MCH 26.8 MCHC 32.6 RDW 14.6 Plt Count 332 Neut % (Auto) 78.0 H Lymph % (Auto) 15.5 L [place] % (Auto) 4.7 Eos % (Auto) 1.2 L Baso % (Auto) 0.6 Neut # (Auto) 57127 H Lymph # (Auto) 2000 [place] # (Auto) 600 Eos # (Auto) 200 Baso # (Auto) 100 PT INR APTT Sodium 133 L Potassium 3.8 Chloride 108 H Carbon Dioxide 20 L BUN 19 H Creatinine 0.65 Estimated GFR > 60 BUN/Creatinine Ratio 29.2 H Glucose 279 H Lactate Calcium 7.9 L Magnesium Total Bilirubin AST ALT Alkaline Phosphatase Total Creatine Kinase Troponin I 0.117 H 0.093 H NT-Pro-B Natriuret Pep Total Protein Albumin Globulin Albumin/Globulin Ratio Lipase Procalcitonin Chlamy pneumoniae PCR Adenovirus (PCR) B.parapertussis DNA PCR Coronavirus OC43 (PCR) Coronavirus HKU1 (PCR) Coronavirus 229E (PCR) SARS-CoV-2 (PCR) Coronavirus NL63 (PCR) Human Metapneumovir PCR Influenza Type A (PCR) Influenza Type B (PCR) M. pneumoniae (PCR) Parainfluenza 1 (PCR) Parainfluenza 2 (PCR) Parainfluenza 3 (PCR) Parainfluenza 4 (PCR) RSV (PCR) Entero/Rhino (PCR) PFS Surgical History Status post delivery Status post delivery Family History Father Cancer Hypertension High cholesterol Diabetes mellitus Mother Diabetes mellitus Hypertension Hyperlipidemia Sister Age: 48 Diabetes mellitus High cholesterol Hypertension Social History household members: significant other Smoking Status: Current every day smoker alcohol intake: current Assessment & Plan Assessment & Plan narrative: 1. Possible community-acquired pneumonia, present on admission and active. 2. Elevated troponin, possible demand ischemia. Present on admission and active. 3. Diabetes mellitus, insulin-dependent with poor control, present on admission and active. PLAN: -Continue IV ceftriaxone and Azithro. -blood cultures. -trend troponins -ECHO Observation status, anticipate 1 night of medical necessity. Time-Based Coding :: 20 min spent with patient and on the chart (including review of chart, obtaining history, exam, reviewing outside data, placing orders, documenting exam and treatment plan, and counseling patient) on 01/04. Quality VTE Deep Vein Thrombosis/Pulmonary Embolism Present on Admission: No
[2024-01-05 08:00] VITALS: BP 135/87; PULSE 108; RESP 14; TEMP 36.6; O2SAT 88
[2024-01-05] MEDS: INSULIN LISPRO 100 UNIT/ML 3ML VIAL SUBCUT (08:07)
[2024-01-05] MEDS: SIMETHICONE 80 MG TABLET 160 MG PO (08:08)
[2024-01-05] MEDS: INSULIN GLARGINE 100 UNIT/ML 3ML PEN 30 UNIT SUBCUT (08:08)
[2024-01-05 09:33] LABS: Lipase 18 U/L (23-300)
[2024-01-05 09:50] LABS: Troponin I 0.281 ng/mL (0.01-0.034)
--- NOTE | 2024-01-05 10:37 | CM.DANOTE ---
B DCP Assessment note Pt is a 43yo F here with elevated tropes/SOB. Per hospitalist in morning rounds, pt transferring to [facility] for cardiology concerns. Transport at 11am. No CM needs identified LOLLY Marrufo Discharge Planning/Care Management CM Discharge Assessment Start: 01/05/24 10:36 Freq: Status: Active Protocol: Document 01/05/24 10:36 (Rec: 01/05/24 10:37 [id number]) Discharge Planning Assessment Assigned Legal Coordinator LOLLY Feliciano DPOA/Assigned Designee Name Nayan, partner Advance Directives? No History Provided By Patient,Medical Record Household Members significant other Independent with ADL's Yes Is patient alert and oriented? Yes Discharge Plan Transfer to Higher Level of Care Additional Comment pt transfering to [facility] Whiteboard Updated in Patient Room with No name and ext. # of Legal Coordinator Review Status In Process Please Provide Date Initial DC 01/05/24 Assessment Was Performed Next Review Type Continued Stay Review
--- NOTE | 2024-01-05 11:38 | PC.NURSE ---
Day shift: Patient's echo revealed cardiomyopathy - patient transferred to [facility]. ALS arrived at 11:35am. Gave report to ALS. All belongings with patient. Called ROSALINA Russell at [facility] and gave report. Patient continues to be short of breath. No oxygen requirements. Denies chest pain.
--- NOTE | 2024-01-05 12:32 | P.DS_ITS ---
History of Present Illness History of Present Illness Chief complaint: Hard Time breathing Narrative: From ED provider: Patient here for complaints of reproducible substernal chest pain/burning sensation with deep breath and walking. Feels short of breath. No cardiac or lung history but does have history of diabetes. Patient seen here 2 days ago treatment for UTI. Today symptoms started in the past 24 hours. No prior history of heart attack or strokes. EKG sinus tachycardia with elevated troponin. Repeat troponin will be done in [address] chest ordered. Subjective: The patient has been ill for about 2 days with fatigue, dyspnea at rest and with exertion, as well as mild chest pressure. She was no cardiac history. In the emergency department she had a tachycardia with a minimally elevated troponin. She was started on IV antibiotics for possible pneumonia and urine was consistent with a urine tract infection. She denies any nausea, or emesis. No diarrhea. She checks her sugars about once a day and notes that they run in the 200s. She has no known cardiac history. Discharge Providers Provider Date of admission: 01/05/24 08:45 Discharge Date: 01/05/24 Primary care physician: Alana Blunt PA-C Consults: Tele with [facility] cardiology. Discharge provider: Brayden Choi MD Summary Hospital Course Discharge Diagnosis: 1. Acute stress cardiomyopathy with severely depressed LVEF and troponin leak, present on admission and active. 2. Elevated troponin, possible demand ischemia. Present on admission and active. 3. Diabetes mellitus, insulin-dependent with poor control, present on admission and active. 4. Possible UTI. Hospital Course: The patient was admitted for possible pneumonia based on infiltrates on x-ray. However her BNP and troponins were elevated. An echo revealed a severely depressed LV EF with apical ballooning. Cardiology recommended transfer to [facility] for further cardiology evaluation. Specifically a coronary angiogram was anticipated. She was given antibiotics initially for this presumptive diagnosis of pneumonia which in all likelihood is pulmonary edema related to acute systolic heart failure. She does have diabetes. She also has possible urinary tract infection. Status at Discharge Cognitive/behavioral status at discharge: oriented Functional status at discharge: independent ambulation Overall status at discharge: patient is not back to baseline Time Spent with Patient Time spent: Greater than 30 minutes Exam Vital Signs (past 8 hours): - 01/05/24 08:00 Temperature 97.8 F Pulse Rate 108 H Respiratory Rate 14 Blood Pressure 135/87 Pulse Oximetry 88 L Oxygen Flow Rate 0 Oxygen Delivery Method Room Air Oxygen Flow Rate 0 Narrative Exam Narrative: NAD, alert and oriented. Fluent speech. Lungs are clear, normal rate and effort. Heart is regular, no murmur gallop or rub. Abdomen is soft, non distended. Extremities are free of edema. Objective ECG Impression: Sinus tachycardia Nonspecific ST and T wave abnormality Imaging Multiple studies:: Radiologist's impression: ECHO: Sinus tachycardia. Heart rate is 108 bpm. Mildly dilated left ventricle with normal wall thickness. There is severe global hypokinesis and apical akinesis. In the right clinical setting these observations could be due to stress cardiomyopathy. Ejection fraction is estimated at 20-25%. EPSS is 1.9 cm consistent with advanced cardiomyopathy. Moderate left atrial enlargement. Otherwise there are normal chamber sizes. Moderate central tricuspid regurgitation. Otherwise no significant valvular abnormalities. Estimated PA systolic pressure is 60 mmHg assuming right atrial pressure of 15 mmHg. Large left pleural effusion. There is no prior study at [facility] available for comparison. CT scan - chest: Radiologist's impression: 1. No change in bilateral pulmonary opacities compared to same-day plain film, most suggestive of pneumonia. Presumably reactive mediastinal hilar adenopathy. Follow-up chest CT with contrast in 3 months recommended to ensure resolution and exclude underlying neoplasm. 2. No evidence of coexisting pulmonary embolus. 3. Bilateral pleural effusions. 4. Coronary artery disease. Chest x-ray: Radiologist's impression: Bilateral edema versus pneumonia. Labs 01/05/24 04:44 01/05/24 04:44 Labs: Laboratory Results - last 24 hr 01/04/24 01/04/24 01/04/24 10:37 11:34 12:32 WBC RBC Hgb Hct MCV MCH MCHC RDW Plt Count Neut % (Auto) Lymph % (Auto) [place] % (Auto) Eos % (Auto) Baso % (Auto) Neut # (Auto) Lymph # (Auto) [place] # (Auto) Eos # (Auto) Baso # (Auto) Sodium Potassium Chloride Carbon Dioxide BUN Creatinine Estimated GFR BUN/Creatinine Ratio Glucose Lactate 1.5 Calcium Troponin I 0.099 H Lipase Procalcitonin 0.043 Chlamy pneumoniae PCR Not detected Adenovirus (PCR) Not detected B.parapertussis DNA PCR Not detected Coronavirus OC43 (PCR) Not detected Coronavirus HKU1 (PCR) Not detected Coronavirus 229E (PCR) Not detected SARS-CoV-2 (PCR) Not detected Coronavirus NL63 (PCR) Not detected Human Metapneumovir PCR Not detected Influenza Type A (PCR) Not detected Influenza Type B (PCR) Not detected M. pneumoniae (PCR) Not detected Parainfluenza 1 (PCR) Not detected Parainfluenza 2 (PCR) Not detected Parainfluenza 3 (PCR) Not detected Parainfluenza 4 (PCR) Not detected RSV (PCR) Not detected Entero/Rhino (PCR) Not detected 01/04/24 01/04/24 01/05/24 17:10 23:41 04:44 WBC 13.2 H RBC 3.30 L Hgb 8.9 L Hct 27.2 L MCV 82.3 MCH 26.8 MCHC 32.6 RDW 14.6 Plt Count 332 Neut % (Auto) 78.0 H Lymph % (Auto) 15.5 L [place] % (Auto) 4.7 Eos % (Auto) 1.2 L Baso % (Auto) 0.6 Neut # (Auto) 37175 H Lymph # (Auto) 2000 [place] # (Auto) 600 Eos # (Auto) 200 Baso # (Auto) 100 Sodium 133 L Potassium 3.8 Chloride 108 H Carbon Dioxide 20 L BUN 19 H Creatinine 0.65 Estimated GFR > 60 BUN/Creatinine Ratio 29.2 H Glucose 279 H Lactate Calcium 7.9 L Troponin I 0.117 H 0.093 H Lipase Procalcitonin Chlamy pneumoniae PCR Adenovirus (PCR) B.parapertussis DNA PCR Coronavirus OC43 (PCR) Coronavirus HKU1 (PCR) Coronavirus 229E (PCR) SARS-CoV-2 (PCR) Coronavirus NL63 (PCR) Human Metapneumovir PCR Influenza Type A (PCR) Influenza Type B (PCR) M. pneumoniae (PCR) Parainfluenza 1 (PCR) Parainfluenza 2 (PCR) Parainfluenza 3 (PCR) Parainfluenza 4 (PCR) RSV (PCR) Entero/Rhino (PCR) 01/05/24 09:04 WBC RBC Hgb Hct MCV MCH MCHC RDW Plt Count Neut % (Auto) Lymph % (Auto) [place] % (Auto) Eos % (Auto) Baso % (Auto) Neut # (Auto) Lymph # (Auto) [place] # (Auto) Eos # (Auto) Baso # (Auto) Sodium Potassium Chloride Carbon Dioxide BUN Creatinine Estimated GFR BUN/Creatinine Ratio Glucose Lactate Calcium Troponin I 0.281 H* Lipase 18 L Procalcitonin Chlamy pneumoniae PCR Adenovirus (PCR) B.parapertussis DNA PCR Coronavirus OC43 (PCR) Coronavirus HKU1 (PCR) Coronavirus 229E (PCR) SARS-CoV-2 (PCR) Coronavirus NL63 (PCR) Human Metapneumovir PCR Influenza Type A (PCR) Influenza Type B (PCR) M. pneumoniae (PCR) Parainfluenza 1 (PCR) Parainfluenza 2 (PCR) Parainfluenza 3 (PCR) Parainfluenza 4 (PCR) RSV (PCR) Entero/Rhino (PCR) PFSH Surgical History Status post delivery Status post delivery Family History Father Cancer Hypertension High cholesterol Diabetes mellitus Mother Diabetes mellitus Hypertension Hyperlipidemia Sister Age: 48 Diabetes mellitus High cholesterol Hypertension Social History household members: significant other Smoking Status: Current every day smoker alcohol intake: current Discharge Assessment & Plan Assessment and Plan Assessment: 1. Acute stress cardiomyopathy with severely depressed LVEF and troponin leak, present on admission and active. 2. Elevated troponin, possible demand ischemia. Present on admission and active. 3. Diabetes mellitus, insulin-dependent with poor control, present on admission and active. 4. Possible UTI. Plan of Treatment: Transfer to [facility] by [facility] ambulance for further care. Discharge Plan Discharge Plan Patient Disposition: [facility] Other facility: [facility] Under care of provider: Dr. Greenwood Provider Discharge Comment: Transfer to [facility] for cardiology consultation and coronary angiogram for abnormal echo. Discharge orders & Medications Medication counseling provided by Pharmacist: No Discharge Health Status Multidrug resistant organism: No MDRO Diet/Activity/Treatments Diet: Carb-consistent/Diabetic Diet comment: NPO at time of transfer. Activity: Bedrest Discharge Data Primary Care Provider: Alana Blunt VTE Deep Vein Thrombosis/Pulmonary Embolism Present on Admission: No MIPS - DC The patient has a history of heart transplant or Left Ventricular Assist Device (LVAD). If yes, STOP here.: No The patient has current or prior documentation of left ventricular ejection fraction (LVEF) less than or equal to 40%, or moderate or severely depressed left ventricular systolic function.: Yes Patient not prescribed/taking ANANDA or ARB for medical/patient reason(s) including (ex: allergy, intolerance, contraindication).: Acute transfer to another hospital for coronary angiogram.
== END 2024-01-05 11:54 | disposition short-term general hospital (02) | DRG 205 ==
LOC: ED 14:12 → AC 14:24
PROVIDERS: Admitting Provider Hospitalist; Emergency Provider Emergency Medicine; Family Provider Family Medicine; PCP Physician Assistant; Referring Provider Emergency Medicine; Visit Provider Hospitalist
DX: I42.8 Other cardiomyopathies (principal); I24.89 Other forms of acute ischemic heart disease; R79.89 Other specified abnormal findings of blood chemistry; E11.9 Type 2 diabetes mellitus without complications; N39.0 Urinary tract infection, site not specified; F17.210 Nicotine dependence, cigarettes, uncomplicated; Z79.4 Long term (current) use of insulin
CPT/HCPCS: 36415; 71045; 71275; 80048; 80053; 81003; 81025; 82550; 82962; 83605; 83690; 83735; 83880; 84145; 84484; 85025; 85610; 85730; 87040; 87633; 93005; 93306; 96365; 99284; 99285; G0378; J0696; J1170; J1644; J1815; J7050; Q9967

== ENCOUNTER 2024-05-02 21:28 | Emergency (ER) | payer OTHER, MEDICAID, SELFPAY ==
[2024-01-04 15:35] VITALS: BMI 29.6
[2024-05-02] VITALS (8 sets, daily range): BP systolic 118–154; BP diastolic 81–108; PULSE 108–119; RESP 18–27; TEMP 36.4; O2SAT 100; BMI 29.1
--- NOTE | 2024-05-02 21:36 | DI.RAD.S_ITS ---
PROCEDURE: XR CHEST 1V INDICATIONS: Chest pain TECHNIQUE: One view of the chest was acquired. COMPARISON: [facility], CR, XR CHEST 1V, 01/04/2024, 10:25. FINDINGS: Surgical changes and devices: None. Lungs and pleura: Lungs are clear. No pleural effusions or pneumothorax. Mediastinum: Mediastinal contours appear normal. Heart size is normal. Bones and chest wall: No suspicious bony lesions. Overlying soft tissues appear unremarkable. IMPRESSION: No acute pulmonary process. Dictated by: Sumi Mota M.D. on 05/02/2024 at 22:11 Approved by: Sumi Mota M.D. on 05/02/2024 at 22:12
--- NOTE | 2024-05-02 21:37 | EKG_ITS ---
[address] [address] Test Date: 2024-05-02 Pat Name: Nancy Rea Department: [facility] Room: Gender: Female Labor Specialist: ROSE MARY DURÁN : 1980 Requested By: Order Number: [id number] Reading MD: Paramjit Clement Measurements Intervals [place] Rate: 112 P: 56 [place]: 142 QRS: 43 QRSD: 90 T: 47 QT: 338 QTc: 461 Interpretive Statements Sinus tachycardia Electronically Signed On 05-03-2024 17:32:25 PST by Paramjit Clement
[2024-05-02] MEDS: LORazepam 0.5 MG TABLET 1 MG PO (21:45)
--- NOTE | 2024-05-02 21:49 | PC.NURSE ---
pt states she starts to feel like she cant breathe then her heart starts to race then she becomes more anxious if she take one of her anxiety pills it doesn't work and 2 makes her nauseated, pt recently dc from outside facility s/p cva
--- NOTE | 2024-05-02 22:05 | ED.CHESTPAIN ---
HPI - Chest Pain General Chief Complaint: Chest Pain Stated Complaint: anxiety, sob, chest px, racing thoughts, prev strk Time Seen by Provider: 05/02/24 21:36 Source: patient Mode of arrival: Wheelchair Limitations: no limitations History of Present Illness HPI narrative: Patient is a 43-year-old female. It was have a significant cardiac history. Earlier this year was admitted to the hospital and subsequently transferred to [facility] for reduced ejection fraction heart failure. 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 She does have right-sided deficits because of this. While she was in the hospital she was placed on multiple medications to help with anxiety. She states she has been taking these medications as directed but she was here because of chest pain, shortness of breath, racing thoughts. She thinks that many of the symptoms are related to anxiety. She states that she feels like her body is rejecting itself she states she was also having a thick vaginal discharge. No history of sexually transmitted diseases. No urinary symptoms. She has had intercourse 1 time since she has been discharged from the rehab facility. Has been monogamous with his 1 partner. No fevers. No vomiting. No abdominal pain. No change in bowel habits. Related Data Home Medications Medication Instructions Recorded Confirmed duloxetine 20 mg capsule,delayed 40 mg PO ONCE PM 01/04/24 01/04/24 release empagliflozin 25 mg tablet 25 mg PO QAM 01/04/24 01/04/24 (Jardiance) famotidine 20 mg tablet 20 mg PO BID PRN STOMACH ACID 01/04/24 01/04/24 gabapentin 300 mg capsule 1 mg PO TID 01/04/24 01/04/24 insulin aspart U-100 100 unit/mL See Rx Instructions .Route .COMPLEX 01/04/24 01/04/24 subcutaneous solution (Novolog U-100 Insulin aspart) metformin 500 mg tablet,extended 1,000 mg PO BID 01/04/24 01/04/24 release 24 hr rosuvastatin 20 mg tablet 20 mg PO QPM 01/04/24 01/04/24 losartan 25 mg tablet 25 mg PO DAILY 01/05/24 Previous Rx's Medication Instructions Recorded lovastatin 20 mg tablet 20 mg PO HS #30 tabs 04/05/16 insulin glargine 100 unit/mL 30 unit (0.3 mL) SQ BID #1 vial 03/29/17 subcutaneous solution (Lantus U-100 Insulin) cefpodoxime 200 mg tablet 200 mg PO Q12H #20 tabs 01/02/24 hydroxyzine HCl 25 mg tablet 25 mg PO BEDTIME PRN anxiety 05/03/24 /insomnia #14 tabs metronidazole 500 mg tablet 500 mg PO BID 7 days #14 tabs 05/03/24 Allergies Allergy/AdvReac Type Severity Reaction Status Date / Time mushroom [MUSHROOM] Allergy Unknown Verified 01/02/24 00:44 anti coagulation Allergy Unknown Uncoded 01/04/24 14:04 Review of Systems Review of Systems ROS Unobtainable: All systems reviewed & are unremarkable except as noted in HPI and below Patient History Surgical History Status post delivery Status post delivery Family History Father Cancer Hypertension High cholesterol Diabetes mellitus Mother Diabetes mellitus Hypertension Hyperlipidemia Sister Age: 48 Diabetes mellitus High cholesterol Hypertension Social History household members: significant other Smoking Status: Current every day smoker alcohol intake: current Smoking Status: Current every day smoker tobacco type: cigarettes and vaping alcohol intake frequency: holidays/special occasions only Substance Use Type: former substance user, marijuana and methamphetamine Exam Initial Vital Signs Initial Vital Signs: Vital Signs Blood Pressure 145/84 H 05/02/24 21:38 Const General: cooperative and anxious HENMT Head: normal to inspection Resp Effort & Inspection: normal respiratory effort Auscultation: clear to auscultation bilaterally Cardio Rate: tachycardic Rhythm: regular rhythm GI Inspection: normal to inspection and non-distended External Female Exam: normal external appearance Speculum Exam - Vagina: erythematous, no lacerations and no lesions Speculum Exam - Cervix: no lesions Other: There was what appeared to be purulent discharge in the vagina. No cervical tenderness. No foreign body noted. Skin General: no rashes or lesions noted Psych Other: Very anxious Appearing. Course Orders Ordered: ED Orders 05/02/24 21:36 XR chest 1V Stat 05/02/24 21:37 EKG-12 Lead Stat 05/02/24 21:50 HIV 1 & 2 Ab/Ag 4th Gen Combo Stat Test Serum,Qual Stat RPR W Reflex to Titer Stat 05/02/24 21:56 Complete Blood Count AUTO DIFF Stat Comprehensive Metabolic Panel Stat Lipase Stat Magnesium Stat NT-proBNP (BNP-Adult 18+) Stat Troponin & CK Cardiac Panel Stat 05/02/24 22:20 Genital Culture Stat RADHA Prep Stat Wet Prep Tric BV Leola Stat 05/03/24 00:37 Consult to INFRASTRUCTURE CONSULTANT - Supply Officer Stat Discontinued Medications Azithromycin (Azithromycin 250 Mg Tablet) 1,000 mg PO NOW ONE Stop: 05/03/24 00:00 Last Admin: 05/03/24 00:08 Dose: 1,000 mg Ceftriaxone Sodium (Ceftriaxone 1,000 Mg Vial) 500 mg IM NOW ONE Stop: 05/03/24 00:00 Last Admin: 05/03/24 00:08 Dose: 500 mg Lidocaine HCl (Lidocaine 1% (Pf) 5 Ml) 2.1 ml INJ NOW ONE Stop: 05/03/24 00:00 Last Admin: 05/03/24 00:08 Dose: 2.1 ml Lorazepam (Lorazepam 0.5 Mg Tablet) 1 mg PO NOW ONE Stop: 05/02/24 21:37 Last Admin: 05/02/24 21:45 Dose: 1 mg Documented By: DEWAYNE Metronidazole (Metronidazole 500 Mg Tablet) 500 mg PO NOW ONE Stop: 05/03/24 00:00 Last Admin: 05/03/24 00:08 Dose: 500 mg Vital Signs Vital signs: Vital Signs - 8 hr 05/02/24 21:38 05/02/24 21:42 05/02/24 22:00 Temperature 97.6 F Pulse Rate 119 H 113 H Respiratory Rate 18 18 Blood Pressure 145/84 H 145/84 H Pulse Oximetry 100 100 Oxygen Delivery Method Room Air 05/02/24 22:01 05/02/24 22:01 05/02/24 22:30 Temperature Pulse Rate 116 H 119 H Respiratory Rate 18 27 H Blood Pressure 148/88 H Pulse Oximetry 100 100 Oxygen Delivery Method 05/02/24 22:30 05/02/24 22:36 05/02/24 22:36 Temperature Pulse Rate 115 H Respiratory Rate 20 Blood Pressure 154/108 H 131/97 H Pulse Oximetry 100 Oxygen Delivery Method 05/02/24 23:00 05/02/24 23:00 05/02/24 23:30 Temperature Pulse Rate 108 H 113 H Respiratory Rate 23 18 Blood Pressure 137/81 Pulse Oximetry 100 100 Oxygen Delivery Method 05/02/24 23:30 05/03/24 00:00 05/03/24 00:00 Temperature Pulse Rate 116 H Respiratory Rate 21 Blood Pressure 118/85 122/60 Pulse Oximetry 100 Oxygen Delivery Method MDM - Chest Pain Medical Records Data Attestation: I reviewed the patient's medical records. Lab Data Attestation: I reviewed the patient's lab results. 05/02/24 21:56 05/02/24 21:56 Labs: Lab Results 05/02/24 05/02/24 Range/Units 21:50 21:56 WBC 14.8 H (4.5-11.0) X10^3/uL RBC 3.84 L (4.0-5.2) X10^6/uL Hgb 10.6 L (12.0-16.0) g/dL Hct 32.1 L (36-46) % MCV 83.7 (80-100) fL MCH 27.7 (26-34) PG MCHC 33.1 (30-36) % RDW 16.6 H (11.6-14.8) % Plt Count 462 H (150-400) X10^3/uL Neut % (Auto) 76.7 H (50-75) % Lymph % (Auto) 16.2 L (25-40) % Jewell % (Auto) 5.4 (3-14) % Eos % (Auto) 1.2 L (2-4) % Baso % (Auto) 0.5 (0-2) % Neut # (Auto) 31234 H (3648-8108) /uL Lymph # (Auto) 2400 (5978-4549) /uL Jewell # (Auto) 800 (0-900) /uL Eos # (Auto) 200 (0-450) /uL Baso # (Auto) 100 (0-100) /uL Sodium 137 (137-145) mmol/L Potassium 3.5 (3.4-5.1) mmol/L Chloride 106 (98-107) mmol/L Carbon Dioxide 24 (22-32) mmol/L BUN 27 H (7-17) mg/dL Creatinine 0.96 (0.52-1.04) mg/dL Estimated GFR > 60 (>60) mL/min BUN/Creatinine Ratio 28.1 H (6-22) Glucose 88 (70-100) mg/dL Calcium 9.3 (8.4-10.2) mg/dL Magnesium 1.9 (1.6-2.3) mg/dL Total Bilirubin 0.5 (0.2-1.3) mg/dL AST 35 (14-36) IU/L ALT 24 (<35) IU/L Alkaline Phosphatase 120 (38-126) U/L Total Creatine Kinase 303 H (30-135) U/L Troponin I 0.016 (0.01-0.034) ng/mL NT-Pro-B Natriuret Pep 518 H (<125) pg/mL Total Protein 8.5 H (6.3-8.2) g/dL Albumin 4.2 (3.5-5.0) g/dL Globulin 4.3 H (1.7-4.1) g/dL Albumin/Globulin Ratio 1.0 (1.0-2.8) Lipase 30 (23-300) U/L Serum , Qual Negative (Negative) HIV 1&2 Ab/P24 Ag 4thGn Negative (NEGATIVE) Imaging Data Chest x-ray: Radiologist's Impression: PROCEDURE: XR CHEST 1V INDICATIONS: Chest pain TECHNIQUE: One view of the chest was acquired. COMPARISON: [facility], , XR CHEST 1V, 01/04/2024, 10:25. FINDINGS: Surgical changes and devices: None. Lungs and pleura: Lungs are clear. No pleural effusions or pneumothorax. Mediastinum: Mediastinal contours appear normal. Heart size is normal. Bones and chest wall: No suspicious bony lesions. Overlying soft tissues appear unremarkable. IMPRESSION: No acute pulmonary process. ECG Data Interpretation: Sinus tachycardia Ventricular rate of 112 Normal axis Normal QRS No ST T wave changes MDM Narrative Medical decision making narrative: Patient does have what appears to be purulent discharge. She was unable to provide us a urine sample. Her gonorrhea and chlamydia tests are pending however given her presentation today will treat her presumptively for gonorrhea and chlamydia. She was given 500 mg of Rocephin IM and 1 g of azithromycin p.o.. Her cultures did come back positive for Trichomonas and also clue cells. She was given a dose of Flagyl in the department and a prescription was sent to the pharmacy of her choice. HIV testing negative. RPR testing still pending. She was not have cervical motion tenderness. No lower abdominal tenderness. No upper abdominal tenderness. I did do a viral cervical culture as well that is pending at the time of discharge. They do have a high suspicion that chest pain and shortness of breath his anxiety related based on her presentation today. She does have a significant cardiac history although her troponin was negative and chest x-ray is negative and has a nonischemic EKG. She did feel somewhat better after the Ativan. Will send her home with a prescription for hydroxyzine that she can take to help her sleep until she follows up with her primary doctor. She was given return precautions. She expressed understanding and agreement with the plan. Discharge Plan Departure Patient Disposition: Home Clinical Impression: Trichomonas infection, Bacterial vaginosis, Anxiety Instructions: Facts About Sexually Transmitted Infections Activity Restrictions/Additional Instructions: we gave you antibiotics here in the emergency department tonight that presumptively treat you for both gonorrhea and chlamydia. You are positive for Trichomonas. This requires a more extended course of antibiotics that was sent to [place]. There were some cultures that were pending at the time of your discharge that we will contact you if we need to add any antibiotics based on the results of these. I would recommend that you inform any sexual partners that they should be tested/treated as well. Return to the emergency department for new symptoms. Prescriptions: New metronidazole 500 mg tablet 500 mg PO BID 7 Days Qty: 14 0RF hydroxyzine HCl 25 mg tablet 25 mg PO BEDTIME PRN (Reason: anxiety /insomnia) Qty: 14 0RF No Action lovastatin 20 MG tablet 20 mg PO HS Qty: 30 5RF insulin glargine [Lantus U-100 Insulin] 100 UNIT/1 ML solution 30 unit SQ BID Qty: 1 0RF cefpodoxime 200 mg tablet 200 mg PO Q12H Qty: 20 0RF Patient Comments: NOT STARTED PER PATIENT Rx Instructions: must administer with a meal/food famotidine 20 mg tablet 20 mg PO BID PRN (Reason: STOMACH ACID) gabapentin 300 mg capsule 1 mg PO TID metformin 500 mg tablet extended release 24 hr 1,000 mg PO BID rosuvastatin 20 mg tablet 20 mg PO QPM duloxetine 20 mg capsule,delayed release(DR/EC) 40 mg PO ONCE PM Jardiance 25 mg tablet 25 mg PO QAM insulin aspart U-100 [Novolog U-100 Insulin aspart] 100 UNIT/1 ML solution See Rx Instructions .ROUTE .COMPLEX Rx Instructions: [employer] losartan 25 mg tablet 25 mg PO DAILY Referrals: Alana Blunt PA-C [Primary Care Provider] - Stand Alone Forms: Patient Portal/API/Survey
[2024-05-02 22:19] LABS: Add Manual Diff / Slide Review NO; Basophils Absolute Auto 100 /uL (0-100); Basophils Percent Auto 0.5 % (0-2); Eosinophils Absolute Auto 200 /uL (0-450); Eosinophils Percent Auto 1.2 % (2-4); Hematocrit 32.1 % (36-46); Hemoglobin 10.6 g/dL (12.0-16.0); Lymphocytes Absolute Auto 2400 /uL (1100-4500); Lymphocytes Percent Auto 16.2 % (25-40); Mean Corpuscular HGB Conc 33.1 % (30-36); Mean Corpuscular Hemoglobin 27.7 PG (26-34); Mean Corpuscular Volume 83.7 fL (80-100); Monocytes Absolute Auto 800 /uL (0-900); Monocytes Percent Auto 5.4 % (3-14); Neutrophils Absolute Auto 11300 /uL (1500-7000); Neutrophils Percent Auto 76.7 % (50-75); Platelet Count 462 X10^3/uL (150-400); Red Blood Cell Count 3.84 X10^6/uL (4.0-5.2); Red Cell Distribution Width 16.6 % (11.6-14.8); White Blood Cell Count 14.8 X10^3/uL (4.5-11.0)
[2024-05-02 22:26] LABS: Alanine Aminotransferase 24 IU/L (<35); Albumin 4.2 g/dL (3.5-5.0); Alkaline Phosphatase 120 U/L (38-126); Aspartate Aminotransferase 35 IU/L (14-36); BUN Creatinine Ratio 28.1 (6-22); Bilirubin Total 0.5 mg/dL (0.2-1.3); Blood Urea Nitrogen 27 mg/dL (7-17); Calcium 9.3 mg/dL (8.4-10.2); Carbon Dioxide 24 mmol/L (22-32); Chloride 106 mmol/L (98-107); Creatine Kinase 303 U/L (30-135); Estimated Glomerular Filt Rate > 60 mL/min (>60); Globulin 4.3 g/dL (1.7-4.1); Glucose 88 mg/dL (70-100); HEMOLYSIS < 15 (0-50); Lipase 30 U/L (23-300); Magnesium 1.9 mg/dL (1.6-2.3); Potassium 3.5 mmol/L (3.4-5.1); Sodium 137 mmol/L (137-145); Total Protein 8.5 g/dL (6.3-8.2)
[2024-05-02 22:38] LABS: NT-proBNP (BNP-Adult 18+) 518 pg/mL (<125); Troponin I 0.016 ng/mL (0.01-0.034)
[2024-05-02 22:41] LABS: Pregnancy Test Serum,Qual Negative (Negative)
[2024-05-03] VITALS: BP 122/60; PULSE 116; RESP 21; O2SAT 100
[2024-05-03] MEDS: metroNIDAZOLE 500 MG TABLET PO (00:08)
[2024-05-03] MEDS: LIDOCAINE 1% (PF) 5 ML 2.1 ML INJ (00:08)
[2024-05-03] MEDS: cefTRIAXone 1,000 MG VIAL 500 MG IM (00:08)
[2024-05-03] MEDS: AZITHROMYCIN 250 MG TABLET 1000 MG PO (00:08)
[2024-05-03 00:10] LABS: HIV 1 & 2 Ab/Ag 4th Gen Combo NEGATIVE (NEGATIVE)
--- NOTE | 2024-05-03 00:40 | PC.NURSE ---
pt with right sided deficit states she sorta has some help at home she was just dc from rehab and given some numbers to call but nothing was set up for home care, pt does need assistance with dressing, and is very emotional regarding asking for help
[2024-05-05 05:13] LABS: RPR Screen Non Reactive (Non Reactive)
--- NOTE | 2024-05-07 17:26 | CM.SWNOTE ---
ED COOPERATIVE EXTENSION AGENT Follow Up Call: Reviewed chart and team rounds for pt's medical status. Per handoff, ED staff wanted to ensure pt had home health care as they were referred to home health from past medical stay but no one contacted them. ED COOPERATIVE EXTENSION AGENT attempted multiple times to contact pt but only phone number on file is not accepting calls at this time. ED COOPERATIVE EXTENSION AGENT on standby if necessary for appropriate referrals. HARVEY Stephens
--- NOTE | 2024-05-09 20:10 | PC.NURSE ---
Pt called back stating she received letter from the hospital. Pt stated that she does not really have a stable phone number. Information about stopping Flaygl and picking up new prescription amoxicillin was given to pt, she has no further questions at this time.
== END 2024-05-03 00:44 | disposition home or self-care (01) ==
PROVIDERS: Emergency Provider Emergency Medicine; PCP Physician Assistant
DX: N76.0 Acute vaginitis (principal); F41.9 Anxiety disorder, unspecified; R07.9 Chest pain, unspecified; B96.89 Other specified bacterial agents as the cause of diseases classified elsewhere; B95.1 Streptococcus, group B, as the cause of diseases classified elsewhere; I69.398 Other sequelae of cerebral infarction; Z86.79 Personal history of other diseases of the circulatory system; F17.210 Nicotine dependence, cigarettes, uncomplicated
CPT/HCPCS: 36415; 71045; 80053; 82550; 83690; 83735; 83880; 84484; 84703; 85025; 86592; 87070; 87077; 87147; 87186; 87205; 87210; 87220; 87252; 87389; 93005; 96372; 99284; J0696

== ENCOUNTER 2025-03-23 23:43 | Emergency (ER) | payer OTHER, MEDICAID, SELFPAY ==
[2024-01-04 15:35] VITALS: BMI 29.6
[2025-03-23 23:57] VITALS: BP 113/76; PULSE 102; RESP 24; TEMP 36.4; O2SAT 95
--- NOTE | 2025-03-23 23:57 | ED.CHESTPAIN ---
HPI - Chest Pain General Chief Complaint: Shortness of Breath/Dyspnea Stated Complaint: SOB, Chest Pain Time Seen by Provider: 03/23/25 23:51 History of Present Illness HPI narrative: 44-year-old female past medical history significant for methamphetamine abuse, polysubstance abuse, type 2 diabetes on insulin, CHF, NSTEMI that required stent in 2023, and acute stroke in 04/29 discharged from [facility] after 2 day hospitalization for NSTEMI and CHF. Apparently, patient has not been taking her diuretics as prescribed and still smokes at this time. She is here today with left-sided chest pain and shortness of breath despite hospitalization for [address] [facility] for which she has not taken any of her prescriptions as prescribed on hospital discharge. Other than what stated 14 point review of system is negative. Related Data Home Medications ?Medication ?Instructions ?Recorded ?Confirmed duloxetine 20 mg capsule,delayed 40 mg PO ONCE PM 01/04/24 01/04/24 release empagliflozin 25 mg tablet 25 mg PO QAM 01/04/24 01/04/24 (Jardiance) famotidine 20 mg tablet 20 mg PO BID PRN STOMACH ACID 01/04/24 01/04/24 gabapentin 300 mg capsule 1 mg PO TID 01/04/24 01/04/24 insulin aspart U-100 100 unit/mL See Rx Instructions .Route .COMPLEX 01/04/24 01/04/24 subcutaneous solution (Novolog U-100 Insulin aspart) metformin 500 mg tablet,extended 1,000 mg PO BID 01/04/24 01/04/24 release 24 hr rosuvastatin 20 mg tablet 20 mg PO QPM 01/04/24 01/04/24 losartan 25 mg tablet 25 mg PO DAILY 01/05/24 Previous Rx's ?Medication ?Instructions ?Recorded lovastatin 20 mg tablet 20 mg PO HS #30 tabs 04/05/16 insulin glargine 100 unit/mL 30 unit (0.3 mL) SQ BID #1 vial 03/29/17 subcutaneous solution (Lantus U-100 Insulin) cefpodoxime 200 mg tablet 200 mg PO Q12H #20 tabs 01/02/24 hydroxyzine HCl 25 mg tablet 25 mg PO BEDTIME PRN anxiety 05/03/24 /insomnia #14 tabs Allergies Allergy/AdvReac Type Severity Reaction Status Date / Time mushroom (MUSHROOM) Allergy Unknown Verified 01/02/24 00:44 anti coagulation Allergy Unknown Uncoded 01/04/24 14:04 Review of Systems Review of Systems ROS Unobtainable: All systems reviewed & are unremarkable except as noted in HPI and below Patient History Surgical History Status post delivery Status post delivery Family History Father Cancer Hypertension High cholesterol Diabetes mellitus Mother Diabetes mellitus Hypertension Hyperlipidemia Sister Age: 48 Diabetes mellitus High cholesterol Hypertension Social History household members: significant other alcohol intake: current tobacco type: cigarettes and vaping alcohol intake frequency: holidays/special occasions only Exam Narrative Exam Narrative: GENERAL: [44] year old patient appears stated age. Well-developed patient, in mild distress. HEAD: Atraumatic. Normocephalic. EYES: Pupils equal round and reactive. Extraocular motions intact. No scleral icterus. No injection or drainage. ENT: Nose without bleeding, purulent drainage. Throat without erythema, tonsillar hypertrophy or exudate. Airway patent. NECK: Trachea midline. Non tender CARDIOVASCULAR: Regular rate and rhythm without murmurs, gallops, or rubs. RESPIRATORY: Clear to auscultation. Breath sounds equal bilaterally. No wheezes, rales, or rhonchi. GASTROINTESTINAL: Abdomen soft, LLQ TTP no r/r/g nondistended. EXTREMITIES: No edema or joint tenderness. BACK: Nontender without deformity or crepitance. No flank tenderness. NEURO: AOx3. SKIN: No rash or erythema of visible areas MDM - Chest Pain Imaging Data CT scan - chest: Radiologist's Impression: [address] [address] [address] Scan Report Signed Patient: Nancy Rea MR#: [id number] : 1980 Acct:[id number] Age/Sex: 44 / F Date of Service: 03/24/25 Loc: ED Accession Number: [id number] Procedure: CT angio chest PE protocol Ordering Provider: Desmond Lorenzo D.O. PROCEDURE: CT ANGIO CHEST PE PROTOCOL INDICATIONS: LLQ pain TECHNIQUE: After the administration of intravenous contrast, 2 mm thick sections acquired from the pulmonary apices to the posterior costophrenic angles. 3-dimensional maximum intensity projection (MIP) coronal and sagittal reformats were then acquired through the thorax. For radiation dose reduction, the following was used: automated exposure control, adjustment of mA and/or kV according to patient size. COMPARISON: [facility], CT, CT ANGIO CHEST PE, 03/20/2025, 8:57. [facility], CT, CT ABDOMEN PELVIS W CON, 03/24/2025, 1:28. [facility], CT, CT ANGIO CHEST PE PROTOCOL, 01/04/2024, 11:30. FINDINGS: Image quality: Diagnostic. Pulmonary arteries: Pulmonary arteries are normal in size, and demonstrate no intraluminal filling defects to suggest central pulmonary embolism. Lower Neck: No enlarged lymph nodes. Thyroid: No thyroid nodules which require sonographic follow up, per consensus guidelines. Axillae: No enlarged lymph nodes. Chest Wall: Unremarkable. Bones: Unremarkable. Lungs and Pleura: There is a small to moderate right-sided and a small left-sided pleural effusion. Abnormal interstitial type infiltrates are seen, with a perihilar distribution. No pneumothorax is seen. Heart: Heart size is normal. No pericardial effusion. At least moderate coronary artery calcification is seen. Thoracic Vessels: No aortic aneurysm. Mediastinum and Veronique: No enlarged lymph nodes. Esophagus: No wall thickening. No hiatal hernia. Upper Abdomen: Please see the accompanying abdominal CT report. IMPRESSION: No pulmonary embolus. Pleural effusions and interstitial prominence can be seen, which are worse than on the recent prior CT. Volume overload is suspected. For the pulmonary opacities, please consider superimposed atypical/viral infection, however. CT scan - abdomen/pelvis: Radiologist's Impression: [address] [address] [address] Scan Report Signed Patient: Nancy Rea MR#: [id number] : 1980 Acct:[id number] Age/Sex: 44 / F Date of Service: 03/24/25 Loc: ED Accession Number: [id number] Procedure: CT abdomen pelvis w con Ordering Provider: Desmond Lorenzo D.O. PROCEDURE: CT ABDOMEN PELVIS W CON INDICATIONS: LLQ pain TECHNIQUE: After the administration of intravenous contrast, axial sections acquired from the lung bases to the pubic symphysis. Coronal and sagittal reformats were performed. For radiation dose reduction, the following was used: automated exposure control, adjustment of mA and/or kV according to patient size. COMPARISON: [facility], CT, CT KUB, 01/06/2024, 9:37. [facility], CT, CT ANGIO CHEST PE PROTOCOL, 03/24/2025, 1:28. FINDINGS: Image quality: Diagnostic. Lower Chest: Please see the accompanying chest CT report. ABDOMEN: Liver: No solid mass. Gallbladder: No radiopaque gallstones or wall thickening. Biliary ducts: No biliary dilation. Pancreas: No ductal dilation. Spleen: Size is within normal limits. Adrenal Glands: No adrenal nodules. Kidneys and Ureters: No hydronephrosis. No solid mass. No complex renal cystic lesion which requires follow up. Stomach and Bowel: Normal colonic caliber, without significant wall thickening. Negative for diverticulitis. There is a moderate volume of stool seen within the colon. No dilated loops of small bowel are seen. Peritoneum: No abnormal intraperitoneal fluid. No free air. Ventral Wall: No significant ventral hernia. Abdominal Nodes: No retroperitoneal or mesenteric adenopathy by size criteria. Vessels: Aorta and inferior vena cava are normal in size. PELVIS: Pelvic Organs: No adnexal masses are seen on either side. Bladder: No bladder wall thickening, accounting for underdistention. Pelvic Nodes: No enlarged lymph nodes. Miscellaneous: No inguinal hernias are seen. Bones: No aggressive osseous abnormality. This patient has transitional lumbar anatomy. For the purposes of this examination, the level with the last pair of ribs is considered to be T12. By this numbering scheme, the L5 level is transitional and is sacralized on the right-side. Focal L4-L5 degenerative change is seen. Milder degenerative changes are seen elsewhere. IMPRESSION: Negative for diverticulitis. There is a moderate amount of stool seen within the colon. Please correlate with an underlying history of constipation. ECG Data Interpretation: Sinus tach HR 101 NC 128 QRS 104 QT 388 T wave inversion V4/5/6 Changed from 05/02/24 [facility] Narrative Medical decision making narrative: All lab work, vital signs, nurse triage note, medication list, previous ER visits, and all imaging studies reviewed. Records from [facility] discharge reviewed extensively including NSTEMI that could be possibly demand ischemia from ongoing CHF and drug use. They did transfuse her to bring her hemoglobin up from 7.5 and today here in our ER hemoglobin is 9.8. Her ejection fraction based on the echo that was done 2 days ago at [facility] is 10-15% reduced from prior of 20-25% showing akinesis of the distal half of the of the left ventricle with no wall motion abnormalities in the particular coronary territory. Her EKG at [facility] documents sinus rhythm with deep S-waves in lead V1 and V2. On today's EKG here sinus tachycardia heart rate of 101 with T-wave inversions in V4 5 and 6. WBC 10.9 hemoglobin 9.8 platelet 417 sodium 133 has not 4.7 chloride 102 CO2 23 BUN 19 creatinine 0.94 glucose 288 lactic acid 1.8 magnesium 1.9 troponin 1st set 1.690 BNP 34627 lipase 49. Chest x-ray showed low lung volumes with poorly defined medial infiltrates left worse than right. Pulmonary edema suspected. I spoke with Dr.Briesno Carlos Eduardo SORIA oncall at [facility] who recalls patient during her hospitalization. He agrees she needs to be transferred but that their hospitalist full on bed and unable to accept transfer at this time. He recommended trying [facility], and [facility] since she may have low-grade cardiogenic shock those facilities are capable of handling her care. I repeated CT scan of the chest and abdomen pelvis. No pulmonary embolus. Pleural effusions and interstitial prominence can be seen which are worse. Than on recent prior CT volume overload is suspected. For the pulmonary opacities please consider superimposed atypical viral infection. CT abdomen and pelvis negative for diverticulitis. There is a moderate amount of stool. Seen within the colon please correlate with an underlying history of constipation. Focal L4-L5 degenerative change. Transitional L5 which is sacralized on the right. Pt given asa, morphine, lasix 40mg IV, heparin bolus and drip here. Case discussed with Dr. العراقي Hospitalist at [facility] who has graciously accepted the patient for transfer awaiting for hospital bed. Discharge Plan Departure Patient Disposition: [facility] Clinical Impression: Acute non-ST elevation myocardial infarction (NSTEMI), Polysubstance abuse CHF (congestive heart failure) Qualifiers: Heart failure type: systolic Heart failure chronicity: acute Qualified Code(s): I50.21 - Acute systolic (congestive) heart failure Prescriptions: No Action lovastatin 20 MG tablet 20 mg PO HS Qty: 30 5RF insulin glargine [Lantus U-100 Insulin] 100 UNIT/1 ML solution 30 unit SQ BID Qty: 1 0RF cefpodoxime 200 mg tablet 200 mg PO Q12H Qty: 20 0RF Patient Comments: NOT STARTED PER PATIENT Rx Instructions: must administer with a meal/food hydroxyzine HCl 25 mg tablet 25 mg PO BEDTIME PRN (Reason: anxiety /insomnia) Qty: 14 0RF famotidine 20 mg tablet 20 mg PO BID PRN (Reason: STOMACH ACID) gabapentin 300 mg capsule 1 mg PO TID metformin 500 mg tablet extended release 24 hr 1,000 mg PO BID rosuvastatin 20 mg tablet 20 mg PO QPM duloxetine 20 mg capsule,delayed release(DR/EC) 40 mg PO ONCE PM Jardiance 25 mg tablet 25 mg PO QAM insulin aspart U-100 [Novolog U-100 Insulin aspart] 100 UNIT/1 ML solution See Rx Instructions .ROUTE .COMPLEX Rx Instructions: [employer] losartan 25 mg tablet 25 mg PO DAILY Referrals: Alana Blunt PA-C [Primary Care Provider, Medical]
[2025-03-24] VITALS (9 sets, daily range): BP systolic 111–127; BP diastolic 67–87; PULSE 96–102; RESP 15–27; O2SAT 91–96
--- NOTE | 2025-03-24 | EKG_ITS ---
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
--- NOTE | 2025-03-24 | DI.RAD.S_ITS ---
PROCEDURE: XR CHEST 1V INDICATIONS: Shortness of breath TECHNIQUE: One view of the chest was acquired. COMPARISON: [facility], CT, CT ANGIO CHEST PE, 03/20/2025, 8:57. [facility], CR, XR CHEST 1V, 05/02/2024, 21:37. FINDINGS: Surgical changes and devices: None. Lungs and pleura: An incomplete inspiratory result is noted, causing a crowded appearance to the lung markings. Poorly defined infiltrates can be seen medially on both sides, left worse than right. No pneumothorax or large pleural effusion can be seen on this plain film study. Mediastinum: Mediastinal contours appear normal. Heart size is normal. Bones and chest wall: No suspicious bony lesions. Overlying soft tissues appear unremarkable. IMPRESSION: Low lung volumes, with poorly defined medial infiltrates, left worse than right. Pulmonary edema is suspected. Differential diagnosis includes viral/atypical infection, however. Dictated by: Amador Golden M.D. on 03/23/2025 at 23:37 Approved by: Amador Golden M.D. on 03/23/2025 at 23:40
--- NOTE | 2025-03-24 00:15 | PC.NURSE ---
pt with c/o SOB, and c/p x 2 days increasing in severity tonight, pt O2 sats at 95% and pt yelling and screaming and moving about on the bed, attempts to obtain IV access unsuccessful d/t pt jerking and yelling, resp unlabored, but resp are tachypneic
[2025-03-24 00:21] LABS: Add Manual Diff / Slide Review NO; Hematocrit 30.2 % (36-46); Hemoglobin 9.8 g/dL (12.0-16.0); Lymphocytes Absolute Auto 2400 /uL (1100-4500); Mean Corpuscular HGB Conc 32.5 % (30-36); Mean Corpuscular Hemoglobin 24.6 PG (26-34); Mean Corpuscular Volume 75.6 fL (80-100); Platelet Count 417 X10^3/uL (150-400)
--- NOTE | 2025-03-24 00:30 | DI.CT.S_ITS ---
PROCEDURE: CT ABDOMEN PELVIS W CON INDICATIONS: LLQ pain TECHNIQUE: After the administration of intravenous contrast, axial sections acquired from the lung bases to the pubic symphysis. Coronal and sagittal reformats were performed. For radiation dose reduction, the following was used: automated exposure control, adjustment of mA and/or kV according to patient size. COMPARISON: [facility], CT, CT KUB, 01/06/2024, 9:37. [facility], CT, CT ANGIO CHEST PE PROTOCOL, 03/24/2025, 1:28. FINDINGS: Image quality: Diagnostic. Lower Chest: Please see the accompanying chest CT report. ABDOMEN: Liver: No solid mass. Gallbladder: No radiopaque gallstones or wall thickening. Biliary ducts: No biliary dilation. Pancreas: No ductal dilation. Spleen: Size is within normal limits. Adrenal Glands: No adrenal nodules. Kidneys and Ureters: No hydronephrosis. No solid mass. No complex renal cystic lesion which requires follow up. Stomach and Bowel: Normal colonic caliber, without significant wall thickening. Negative for diverticulitis. There is a moderate volume of stool seen within the colon. No dilated loops of small bowel are seen. Peritoneum: No abnormal intraperitoneal fluid. No free air. Ventral Wall: No significant ventral hernia. Abdominal Nodes: No retroperitoneal or mesenteric adenopathy by size criteria. Vessels: Aorta and inferior vena cava are normal in size. PELVIS: Pelvic Organs: No adnexal masses are seen on either side. Bladder: No bladder wall thickening, accounting for underdistention. Pelvic Nodes: No enlarged lymph nodes. Miscellaneous: No inguinal hernias are seen. Bones: No aggressive osseous abnormality. This patient has transitional lumbar anatomy. For the purposes of this examination, the level with the last pair of ribs is considered to be T12. By this numbering scheme, the L5 level is transitional and is sacralized on the right-side. Focal L4-L5 degenerative change is seen. Milder degenerative changes are seen elsewhere. IMPRESSION: Negative for diverticulitis. There is a moderate amount of stool seen within the colon. Please correlate with an underlying history of constipation. Additional findings: Focal L4-L5 degenerative change Transitional L5, which is sacralized on the right Dictated by: Amador Golden M.D. on 03/24/2025 at 1:07 Approved by: Amador Golden M.D. on 03/24/2025 at 1:10
--- NOTE | 2025-03-24 00:30 | DI.CT.S_ITS ---
PROCEDURE: CT ANGIO CHEST PE PROTOCOL INDICATIONS: LLQ pain TECHNIQUE: After the administration of intravenous contrast, 2 mm thick sections acquired from the pulmonary apices to the posterior costophrenic angles. 3-dimensional maximum intensity projection (MIP) coronal and sagittal reformats were then acquired through the thorax. For radiation dose reduction, the following was used: automated exposure control, adjustment of mA and/or kV according to patient size. COMPARISON: [facility], CT, CT ANGIO CHEST PE, 03/20/2025, 8:57. [facility], CT, CT ABDOMEN PELVIS W CON, 03/24/2025, 1:28. [facility], CT, CT ANGIO CHEST PE PROTOCOL, 01/04/2024, 11:30. FINDINGS: Image quality: Diagnostic. Pulmonary arteries: Pulmonary arteries are normal in size, and demonstrate no intraluminal filling defects to suggest central pulmonary embolism. Lower Neck: No enlarged lymph nodes. Thyroid: No thyroid nodules which require sonographic follow up, per consensus guidelines. Axillae: No enlarged lymph nodes. Chest Wall: Unremarkable. Bones: Unremarkable. Lungs and Pleura: There is a small to moderate right-sided and a small left- sided pleural effusion. Abnormal interstitial type infiltrates are seen, with a perihilar distribution. No pneumothorax is seen. Heart: Heart size is normal. No pericardial effusion. At least moderate coronary artery calcification is seen. Thoracic Vessels: No aortic aneurysm. Mediastinum and Veronique: No enlarged lymph nodes. Esophagus: No wall thickening. No hiatal hernia. Upper Abdomen: Please see the accompanying abdominal CT report. IMPRESSION: No pulmonary embolus. Pleural effusions and interstitial prominence can be seen, which are worse than on the recent prior CT. Volume overload is suspected. For the pulmonary opacities, please consider superimposed atypical/viral infection, however. Additional findings: At least moderate coronary artery calcification Dictated by: Amador Golden M.D. on 03/24/2025 at 1:03 Approved by: Amador Golden M.D. on 03/24/2025 at 1:07
[2025-03-24 00:33] LABS: Lactate (Lactic Acid) 1.8 mmol/L (0.7-2.1)
[2025-03-24 00:34] LABS: Alanine Aminotransferase 15 IU/L (<35); Albumin 3.5 g/dL (3.5-5.0); Albumin Globulin Ratio 0.9 (1.0-2.8); Alkaline Phosphatase 95 U/L (38-126); Blood Urea Nitrogen 19 mg/dL (7-17); Calcium 8.2 mg/dL (8.4-10.2); Carbon Dioxide 23 mmol/L (22-32); Chloride 102 mmol/L (98-107); Estimated Glomerular Filt Rate > 60 mL/min (>60); Globulin 3.8 g/dL (1.7-4.1); Glucose 288 mg/dL (70-99); Potassium 4.7 mmol/L (3.4-5.1); Sodium 133 mmol/L (137-145); Total Protein 7.3 g/dL (6.3-8.2)
[2025-03-24 00:46] LABS: NT-proBNP (BNP-Adult 18+) 13700 pg/mL (<125)
[2025-03-24 00:54] LABS: Troponin I 1.690 ng/mL (0.01-0.034)
[2025-03-24 01:08] LABS: Lipase 49 U/L (23-300); Magnesium 1.9 mg/dL (1.6-2.3)
[2025-03-24 01:09] LABS: HEMOLYSIS 168 (0-50)
[2025-03-24] MEDS: ASPIRIN EC 325 MG TABLET PO (01:10)
[2025-03-24] MEDS: ONDANSETRON 4 MG/2 ML INJ IV (01:42)
[2025-03-24] MEDS: MORPHINE 4 MG/ML INJ IV (01:50)
[2025-03-24] MEDS: FUROSEMIDE 40 MG/4 ML VIAL IV (02:38)
[2025-03-24] MEDS: HEPARIN 5,000 UNIT/ML VIAL 5000 UNIT IV (02:38)
[2025-03-24] MEDS: HEPARIN DRIP 25,000 UNIT/500 ML IV.SOLN 19.344 UNIT IV (02:40)
[2025-03-24 03:05] LABS: INR 1.0 (0.9-1.3); Prothrombin Time 11.7 SECONDS (9.4-12.5)
[2025-03-24 03:50] LABS: Troponin I 1.650 ng/mL (0.01-0.034)
== END 2025-03-24 03:50 | disposition short-term general hospital (02) ==
PROVIDERS: Emergency Provider Family Medicine; PCP Physician Assistant
DX: I21.4 Non-ST elevation (NSTEMI) myocardial infarction (principal); I50.21 Acute systolic (congestive) heart failure; R07.9 Chest pain, unspecified; F19.10 Other psychoactive substance abuse, uncomplicated; E11.9 Type 2 diabetes mellitus without complications; Z79.4 Long term (current) use of insulin; R10.32 Left lower quadrant pain; F17.210 Nicotine dependence, cigarettes, uncomplicated
CPT/HCPCS: 36415; 71045; 71275; 74177; 80053; 83605; 83690; 83735; 83880; 84484; 85025; 85610; 93005; 96374; 96375; 99284; 99285; J1171; J1644; J1938; J2272; J2405; Q9967